=== PATIENT | female | born 1980 | race Caucasian/White ===

== ENCOUNTER → 2020-04-25 15:13 | Outpatient (CLI) | payer MEDICAID, SELFPAY ==
--- NOTE | 2020-04-25 15:20 | US_ITS ---
PROCEDURE: US TRANSVAGINAL CLINICAL INDICATION: US T/V- Pelvic Pain COMPARISON: No exams were available for comparison FINDINGS: The uterus measures 9 centimeters x 4.5 cm x 1.4 centimeters. 11 millimeter x 8 millimeter endometrial polyp is demonstrated. Endometrial thickness measures 14 millimeters. The left ovary measures 32 millimeters x 19 mm x 31 millimeters. The right ovary measures 24 millimeters x 13 millimeters X 33 millimeters.. There are no abnormal fluid collections. Normal bilateral ovarian Doppler signal is demonstrated IMPRESSION: Endometrial polyp Dictated by: Kenny Tang 04/25/2020 16:09 Electronically signed by Kenny Tang in [facility] 04/25/2020 16:09
== END ==
PROVIDERS: PCP Family Medicine; Visit Provider Obstetrics & Gynecology
DX: R10.2 Pelvic and perineal pain (principal)
CPT/HCPCS: 76830

== ENCOUNTER → 2020-05-04 14:46 | Outpatient (CLI) | payer MEDICAID, SELFPAY ==
[2020-05-04 16:25] LABS: HCG,Quantitative < 2 mIU/ml (0-5.42)
== END ==
PROVIDERS: Visit Provider Obstetrics & Gynecology
DX: Z32.00 Encounter for pregnancy test, result unknown (principal)
CPT/HCPCS: 36415; 84702

== ENCOUNTER → 2020-06-01 10:33 | Outpatient (CLI) | payer MEDICAID, SELFPAY ==
[2020-06-01 11:36] LABS: Basophils % 0.4 % (0.1-2.0); Eosinophils # 0.1 K/mm3 (0.0-0.4); Eosinophils % 1.8 % (0.1-12.0); Hematocrit 41.2 % (37.0-47.0); Lymphocytes # 3.9 K/mm3 (0.7-4.5); Lymphocytes % 56.2 % (10-50); Mean Corpuscular HGB Conc 33.9 g/dL (31.8-35.4); Mean Corpuscular Hemoglobin 31.7 pg (27.0-31.2); Mean Corpuscular Volume 93.6 fl (81-99); Mean Platelet Volume 7.3 fl (7.4-10.4); Monocytes # 0.4 K/mm3 (0.1-1.0); Monocytes % 5.3 % (1.7-9.3); Neutrophils # 2.5 K/mm3 (1.8-7.8); Neutrophils % 36.3 % (37.0-80.0); Platelet Count 250 K/mm3 (142-424); Red Cell Distribution Width 14.2 % (11.5-17.5); White Blood Count 6.9 K/mm3 (4.8-10.8)
[2020-06-01 11:56] LABS: MANUAL DIFFERENTIAL MANUAL DIFFERENTIAL (MANUAL DIFF)
[2020-06-01 12:14] LABS: Chloride 104 mmol/L (98-107); Sodium 137 mmol/L (136-145)
[2020-06-01 12:16] LABS: Blood Urea Nitrogen 5 mg/dl (7-17); Estimated Glomerular Filt Rate 92 ml/min (>60); GFR (African American) 111 ML/MIN (>60)
[2020-06-01 12:17] LABS: Alanine Aminotransferase 5 U/L (12-78); Albumin Level 3.5 g/dl (3.5-5.0); Albumin/Globulin Ratio 1.3 (1.1-1.8); Alkaline Phosphatase 51 U/L (38-126); Aspartate Amino Transferase 16 U/L (14-36); Bilirubin,Total 0.5 mg/dl (0.2-1.3); Calcium 8.5 mg/dl (8.4-10.2); Carbon Dioxide 28 mmol/L (22.0-30.0); Globulin 2.7 g/dL (1.3-3.2); Glucose 81 mg/dl (74-100); Total Protein,Serum 6.2 g/dl (6.3-8.2)
[2020-06-01 14:05] LABS: Eosinophils % 1 % (0-3); Lymphocytes % 67 % (10-50); Monocytes % 3 % (2-9); Neutrophils % 29 % (42-76); Platelet Estimate Normal; RBC Morphology Normal; Total Cells Counted 100
[2020-06-01 14:25] LABS: Coronavirus 19 IgG Antibody Negative (Negative); Coronavirus 19 IgM Antibody Negative (Negative)
[2020-06-01 14:27] LABS: HCG Qualitative, Serum Negative (Negative)
== END ==
PROVIDERS: PCP Family Medicine; Visit Provider Obstetrics & Gynecology
DX: Z01.818 Encounter for other preprocedural examination (principal); N92.0 Excessive and frequent menstruation with regular cycle
CPT/HCPCS: 36415; 80053; 84703; 85007; 85025; 86328

== ENCOUNTER → 2020-06-05 12:16 | Outpatient (CLI) | payer MEDICAID, SELFPAY ==
[2020-06-05 13:44] LABS: Coronavirus 19 IgG Antibody Negative (Negative)
[2020-06-05 13:45] LABS: Coronavirus 19 IgM Antibody Negative (Negative)
== END ==
PROVIDERS: Visit Provider Obstetrics & Gynecology
DX: Z01.818 Encounter for other preprocedural examination (principal); N92.0 Excessive and frequent menstruation with regular cycle
CPT/HCPCS: 36415; 86328

== ENCOUNTER 2020-06-06 07:01 | Day surgery (SDC) | payer MEDICAID, SELFPAY ==
[2020-06-02 14:17] VITALS: BMI 28.7
[2020-06-06] VITALS (14 sets, daily range): BP systolic 108–140; BP diastolic 64–90; PULSE 65–101; RESP 12–18; TEMP 36.3–43; O2SAT 95–99
--- NOTE | 2020-06-06 08:40 | P.PN_ITS ---
[facility] Anesthesia Checklist - Structural Data Admitted From: Home Planned Operative Procedure/s: d/c,hyst,novasure Consent for Planned Operative Procedure(s) Verified: Yes - Additional verifications Anesthesia Reactions: No Hx Blood Transfusions: No Blood Transfusion Reaction: No - Airway Assessment C-Spine Mobility Assessed: Yes TMJ Mobility Assessed: Yes Dentition: Edentulous - Neurological Assessment Level of Consciousness: Awake, Alert, Appropriate - Anesthesia Plan Anesthesia Risk discussed: Yes ASA Class: II Anesthesia Type: General [facility] History I have reviewed the patient's past medical history: Yes Medical History: Denies:: Cancer, Diabetes Mellitus Type 1, Diabetes Mellitus Type 2, Internal Pacemaker, MRSA, Seizures *Have you ever received a pneumonia vaccine?: No *Have you received a flu vaccine this season?: No Other Medical History: Denies: Blood Transfusion Reaction Anesthesia experience/problems:: none Other Surgeries: Yes: Appendectomy. No: Pacemaker Amputation: No Fractures: No - *Social History Last grade of school completed: GED Smoking Status: Current every day smoker Tobacco Type: cigarettes # Packs/Day (cigarettes): 2 Alcohol Intake: never Alcohol Intake Frequency:: holidays/special occasions only Substance Use Type: denies use *Occupational Status:: disabled Housing: house *Travel in the last 8 weeks: None Family Hx:: Cancer, Diabetes, Heart Attack, Hypertension, Hyperlipidemia, Asthma, Anemia, Stroke, Kidney Disease, Thyroid Disorder, Bleeding Disorder
--- NOTE | 2020-06-06 09:08 | HMH.ANESI ---
[facility] Anesthesia Record Part I Intake, IV Amount: 1,200 Estimated blood loss (mL): 10 Urine output (mL): 0 Blood Pressure: 116/74 SaO2: 96 Pulse Rate: 101 Respiratory Rate: 12 Temperature: 97.4 F Patient is:: Awake, Stable Stable to PACU at:: 09:05
--- NOTE | 2020-06-06 09:50 | P.OP_ITS ---
Date of procedure: 06/06/20 Pre-op Diagnosis:: Heavy menstrual bleeding, dysfunctional uterine bleeding, endometrial polyp, pelvic pain, previous tubal ligation Post-op Diagnosis:: same Procedure performed:: D&C Hysteroscopy, Myosure excision of endometrial polyp, Novasure endometrial ablation Surgeon:: Mari Russell MD Home Theater Installer(s):: none NOZZLE OPERATOR:: Gabe Sydni Anesthesia: GETA Estimated blood loss (mL): 10 Operative findings:: stenotic cervix endometrial polyp anterior uterine wall Operative note:: The patient was taken to the operating room and general anesthesia was administered. She was prepped/draped in lithotomy position. The anterior lip of the cervix was grasped with a single tooth tenaculum. The cervix was stenotic and initially unable to be dilated with the regular Saul dilators. Pediatric and flexible tip dilators were used to access the cervical os and the cervix was successfully dilated until able to accomodate the Myosure hysteroscope. The hysteroscope was advanced through the cervix and into the uterine cavity, which was distended with LR. Once the uterus was sufficiently distended, the cavity was evaluated and revealed some shaggy endometrium and a polyp on the anterior uterine wall. The Myosure was inserted into the hysteroscope and the polyp was excised successfully and without complication or significant fluid deficit. The remainder of the endometrium was sampled for tissue diagnosis. After the conclusion of this procedure, the Myosure and hys teroscope were removed from the uterus. The uterine cavity sounded to a length of 5cm. The Novasure was inserted through the cervix and expanded to fit the width of the uterus, with a width of 4.4cm. After a successful cavity assessment, the device was deployed and the endometrial ablation was completed in 108 seconds. Once the device had turned off, the Novasure was removed from the uterus and the hysteroscope was reinserted into the uterine cavity. The cavity appeared diffusely cauterized. The hysteroscope was removed from the uterus and all instruments removed from the vagina. The tenaculum site was hemostatic. All sponge/lap/needle/instrument counts correct x2. Total EBL: 10 cc. The patient was taken out of lithotomy position, extubated and taken to the PACU in stable condition. Condition: stable Disposition: PACU Specimens:: endometrial curettings Complications:: none
--- NOTE | 2020-06-06 10:47 | HMH.ANESII ---
[facility] Anesthesia Record Part II Discharge Time: 09:35 Destination: Surgical Day Care (OP Surgery) PACU nurse assessment reviewed?: Yes Patient Condition:: Fair Anesthesia Complications:: None Swallowing reflex intact?: Yes Cyanosis?: Yes Blood Pressure: 120/70 Pulse Rate: 73 Temperature: 97.5 F Mental Status: Alert & Oriented Pain level:: 8 Nausea and/or vomitting:: None Intake, IV Amount: 0 (NM)
--- NOTE | 2020-06-06 11:26 | PC.NURSE ---
Pt sleeping comfortably prior to IV being discontinued. Pt sister then helped her get dressed. She was alert and oriented and ambulated to wheelchair.
== END 2020-06-06 11:20 | disposition home or self-care (01) ==
LOC: OR 07:02
PROVIDERS: PCP Family Medicine; Visit Provider Obstetrics & Gynecology
PROC: 0U5B8ZZ Destruction of Endometrium, Via Natural or Artificial Opening Endoscopic (ICD-10-PCS; CPT 58563; principal; 2020-06-06 08:00)
DX: N88.2 Stricture and stenosis of cervix uteri (principal); N84.0 Polyp of corpus uteri; Z90.49 Acquired absence of other specified parts of digestive tract; Z72.0 Tobacco use; Z80.9 Family history of malignant neoplasm, unspecified; Z83.3 Family history of diabetes mellitus; Z82.3 Family history of stroke; Z82.49 Family history of ischemic heart disease and other diseases of the circulatory system; Z83.438 Family history of other disorder of lipoprotein metabolism and other lipidemia; Z82.5 Family history of asthma and other chronic lower respiratory diseases; Z84.1 Family history of disorders of kidney and ureter; Z79.51 Long term (current) use of inhaled steroids
CPT/HCPCS: 58563; 96374; J2405

== ENCOUNTER 2022-03-17 20:32 | Emergency (ER) | payer MEDICAID, SELFPAY ==
[2022-03-17 21:57] LABS: Microscopic, Urine URINE MICROSCOPIC (MICROSCOPIC)
[2022-03-17 21:59] VITALS: BMI 35.4
--- NOTE | 2022-03-17 22:01 | CT_ITS ---
PROCEDURE INFORMATION: Exam: CT Abdomen And Pelvis With Contrast Exam date and time: 03/17/2022 10:34 PM Age: 41 years old Clinical indication: Abdominal pain; Localized; Right lower quadrant (rlq); Patient HX: Rlq pain for 3 months worse tonight; Additional info: Abd pain TECHNIQUE: Imaging protocol: Computed tomography of the abdomen and pelvis with contrast. Radiation optimization: All CT scans at this facility use at least one of these dose optimization techniques: automated exposure control; mA and/or kV adjustment per patient size (includes targeted exams where dose is matched to clinical indication); or iterative reconstruction. Contrast material: ISOVUE; Contrast volume: 75 ml; Contrast route: IV; COMPARISON: CR XR PELVIS 1-2V 10/09/2019 10:08 PM FINDINGS: Lungs: Calcified granuloma in the right lower lobe. No consolidation of the lung bases. Liver: Unremarkable. No intrahepatic biliary dilation. Gallbladder and bile ducts: No gallbladder wall thickening. No radio-opaque stones. No common bile duct dilation. Pancreas: Unremarkable. No main pancreatic duct dilation. Spleen: Normal. No splenomegaly. Adrenal glands: Unremarkable. Kidneys and ureters: Symmetric, homogeneous enhancement of both kidneys. No hydronephrosis. Stomach and bowel: No obstruction. No abnormal bowel wall thickening. Appendix: No evidence of appendicitis. Intraperitoneal space: No pneumoperitoneum. No ascites. Vasculature: No abdominal aortic aneurysm. Lymph nodes: No enlarged lymph nodes. Urinary bladder: Bladder is partially fluid-filled, without evidence of wall thickening. Reproductive: There appears to be hyperenhancement of the endometrial lining within the uterine fundus, with possible loculation of endometrial fluid. There appear to be septations within the endometrial cavity, either synechiae or a congenital Mullerian segmentation anomaly. Bones/joints: No acute fracture. Soft tissues: Unremarkable. IMPRESSION: 1. Nonspecific perceived hyperenhancement of the endometrial lining, with possible loculated endometrial fluid. Considerations would include endometritis, hyperplasia, polyps, or neoplasm. Possible synechiae versus congenital segmentation anomaly. Consider pelvic ultrasound for further evaluation. 2. Otherwise unremarkable study.
[2022-03-17 22:03] LABS: Appearance,Urine CLEAR (Clear); Bilirubin,Urine Negative (Negative); Blood, Urine TRACE-I (Negative); Color,Urine YELLOW (Yellow); Glucose,Urine (UA) Negative (Negative); Ketones,Urine Negative (Negative); Leukocyte Esterase,Urine Negative (Negative); Nitrate,Urine Negative (Negative); Protein,Urine Negative (Negative); Specific Gravity, Urine 1.015 (1.005-1.030); Urobilinogen,Urine 0.2 EU/dl (0.2)
[2022-03-17 22:05] VITALS: BP 124/78; PULSE 70; RESP 18; TEMP 36.8; O2SAT 100; BMI 33.6
[2022-03-17 22:08] LABS: Urine Pregnancy, HCG Qual. Negative (Negative)
[2022-03-17 22:15] LABS: Basophils # 0.5 K/mm3 (0-0.2); Eosinophils # 0.2 K/mm3 (0.0-0.4); Eosinophils % 1.9 % (0.1-12.0); Hematocrit 47.4 % (37.0-47.0); Hemoglobin 15.8 g/dL (12.2-16.2); Lymphocytes # 4.7 K/mm3 (0.7-4.5); Lymphocytes % 44.3 % (10-50); Mean Corpuscular HGB Conc 33.3 g/dL (31.8-35.4); Mean Corpuscular Hemoglobin 31.9 pg (27.0-31.2); Mean Corpuscular Volume 95.8 fl (81-99); Mean Platelet Volume 7.9 fl (7.4-10.4); Monocytes # 0.5 K/mm3 (0.1-1.0); Monocytes % 4.5 % (1.7-9.3); Neutrophils # 5.2 K/mm3 (1.8-7.8); Neutrophils % 49.3 % (37.0-80.0); Platelet Count 341 K/mm3 (142-424); Red Blood Count 4.95 M/mm3 (4.20-5.40); Red Cell Distribution Width 13.8 % (11.5-17.5); White Blood Count 10.5 K/mm3 (4.8-10.8)
[2022-03-17 22:23] LABS: HCG Qualitative, Serum Negative (Negative)
[2022-03-17 22:24] LABS: Alanine Aminotransferase 15 U/L (12-78); Albumin Level 4.3 g/dl (3.5-5.0); Albumin/Globulin Ratio 1.4 (1.1-1.8); Alkaline Phosphatase 61 U/L (38-126); Amylase 72 U/L (30-110); Anion Gap 12.6 mEq/L (5-15); Aspartate Amino Transferase 22 U/L (14-36); Blood Urea Nitrogen 11 mg/dl (7-17); Carbon Dioxide 27 mmol/L (22.0-30.0); Chloride 105 mmol/L (98-107); Creatinine Clearance Estimated 110 mL/min (50-200); Estimated Glomerular Filt Rate 68 ml/min (>60); GFR (African American) 83 ML/MIN (>60); Globulin 3.1 g/dL (1.3-3.2); Glucose 93 mg/dl (74-100); Lipase 120 U/L (23-300); Potassium 3.6 mmoL/L (3.5-5.1); Sodium 141 mmol/L (136-145); Total Protein,Serum 7.4 g/dl (6.3-8.2)
[2022-03-17 22:29] LABS: Bilirubin,Total < 0.1 mg/dl (0.2-1.3)
[2022-03-17 22:30] LABS: C-Reactive Protein 4.9 mg/L (0-4)
[2022-03-17 22:30] LABS: Bacteria,Urine 1+ /lpf; RBC,Urine Occasional #/hpf (0-3)
[2022-03-17 22:41] LABS: Procalcitonin 0.046 ng/mL (0.0-2.0)
--- NOTE | 2022-03-17 22:42 | PC.NURSE ---
Pt gone to RAD
[2022-03-17 22:44] LABS: Erythrocyte Sedimentation Rate 18 mm/hr (0-20)
--- NOTE | 2022-03-17 22:51 | PC.WOUNDNOTE ---
Pt gone to RAD
--- NOTE | 2022-03-17 22:52 | PC.NURSE ---
Pt back from RAD
--- NOTE | 2022-03-18 00:41 | HMH.EDNVD ---
ED Disposition Clinical Impression: Abdominal pain Qualifiers: Abdominal location: right lower quadrant Qualified Code(s): R10.31 - Right lower quadrant pain Disposition: Home, Self-Care Condition on Discharge: Good Instructions: DI for Acute Abdominal Pain Additional Instructions: see pcp and bankruptcy paralegal for follow up Referrals: Tiffany Hoskins [Primary Care Provider] - Nabeel Monte MD [Staff Physician] - Mari Russell MD [Staff Physician] - Soraya Ornelas DO [Physician] - - Critical Care Critical Care Time: No Attestation: On 03/17/22, the high probability of a clinically significant, sudden or life threatening deterioration of the following system(s) required my full and direct attention, intervention and personal management. The time I documented below is in addition to time spent performing reported procedures but includes the following listed in this critical care notation. Medical Decision Making - Medical Records Medical records reviewed: Yes: I reviewed the patient's medical records. - Damon Inquiry Pt receiving controlled substance: No Vital Signs: 03/17/22 22:05 Temperature 98.2 F Temperature Source Oral Pulse Rate [Apical] 70 Respiratory Rate 18 Blood Pressure [Right Arm] 124/78 Blood Pressure Mean [Right Arm] 93 Blood Pressure Source [Right Arm] Automatic Cuff Blood Pressure Position [Right Arm] Sitting 02 Sat by Pulse Oximetry 100 Oxygen Delivery Method Room Air - Lab Data Lab results reviewed: Yes: I reviewed the patient's lab results. Lab Results 03/17/22 21:23: Urine HCG, Qual Negative 03/17/22 21:53: Urine Color Yellow, Urine Appearance Clear, Urine pH 5.0, Ur Specific [place] 1.015, Urine Protein Negative, Urine Glucose (UA) Negative, Urine Ketones Negative, Urine Blood Trace-i, Urine Nitrate Negative, Urine Bilirubin Negative, Urine Urobilinogen 0.2, Ur Leukocyte Esterase Negative, Urine RBC Occasional, Urine WBC 3-5, Ur Squamous Epith Cells 5-10, Urine Bacteria 1+ 03/17/22 21:55: WBC 10.5, RBC 4.95, Hgb 15.8, Hct 47.4 H, MCV 95.8, MCH 31.9 H, MCHC 33.3, RDW 13.8, Plt Count 341, MPV 7.9, Neut % (Auto) 49.3, Lymph % (Auto) 44.3, [place] % (Auto) 4.5, Eos % (Auto) 1.9, Baso % (Auto) 5.0 H, Neut # (Auto) 5.2, Lymph # (Auto) 4.7 H, [place] # (Auto) 0.5, Eos # (Auto) 0.2, Baso # (Auto) 0.5 H 03/17/22 21:55: Sodium 141, Potassium 3.6, Chloride 105, Carbon Dioxide 27, Anion Gap 12.6, BUN 11, Creatinine 0.90, Estimated Creat Clear 110, Estimated GFR 68, Est GFR ( Amer) 83, Glucose 93, Calcium 9.0, Total Bilirubin < 0.1 L, AST 22, ALT 15, Alkaline Phosphatase 61, C-Reactive Protein 4.9 H, Total Protein 7.4, Albumin 4.3, Globulin 3.1, Albumin/Globulin Ratio 1.4, Amylase 72, Lipase 120 03/17/22 21:55: ESR 18 03/17/22 21:55: Procalcitonin 0.046 03/17/22 21:55: Serum HCG, Qual Negative Result diagrams: 03/17/22 21:55 03/17/22 21:55 Orders (Tests/Meds): ED MEDICATIONS Generic Name Dose Route Start Last Admin Trade Name Freq PRN Reason Stop Dose Admin Sodium Chloride 1,000 mls @ 999 mls/hr 03/17/22 22:15 03/17/22 22:04 Sod Chlor 0.9% 1000ml Bag IV 03/17/22 23:15 999 mls/hr .Q1H1M JOHNSON Administration Discontinued Medications Generic Name Dose Route Start Last Admin Trade Name Freq PRN Reason Stop Dose Admin Iopamidol 75 ml 03/17/22 22:53 03/17/22 22:54 Iopamidol-370 (76%);100ml Bottle IV 03/17/22 22:54 75 ml ONCE ONE Administration Ketorolac Tromethamine 30 mg 03/17/22 22:01 03/17/22 22:09 Ketorolac 30mg/Ml Vial IV 03/17/22 22:02 30 mg ONCE ONE Administration Morphine Sulfate 4 mg 03/17/22 22:54 03/17/22 22:55 Morphine 4mg/Ml Syringe IV 03/17/22 22:55 4 mg ONCE ONE Administration Ondansetron HCl 4 mg 03/17/22 22:01 03/17/22 22:10 Ondansetron 4mg/2ml Vial IV 03/17/22 22:02 4 mg ONCE ONE Administration Sodium Chloride 10 ml 03/17/22 22:53 03/17/22 22:54 Sodium Chloride 0.9% 10ml Syr (Rad Only) IV 03/17/22 22:54 10
[2022-03-18 00:52] VITALS: BP 94/67; PULSE 71; RESP 18; TEMP 36.8; O2SAT 100
== END 2022-03-18 01:00 | disposition home or self-care (01) ==
PROVIDERS: Emergency Provider Emergency Medicine; PCP Family Medicine
DX: R10.31 Right lower quadrant pain (principal); M79.651 Pain in right thigh; Z79.1 Long term (current) use of non-steroidal anti-inflammatories (NSAID); Z79.899 Other long term (current) drug therapy; Z82.49 Family history of ischemic heart disease and other diseases of the circulatory system; Z80.9 Family history of malignant neoplasm, unspecified; Z83.3 Family history of diabetes mellitus; Z83.438 Family history of other disorder of lipoprotein metabolism and other lipidemia; Z83.49 Family history of other endocrine, nutritional and metabolic diseases; Z84.1 Family history of disorders of kidney and ureter; Z83.2 Family history of diseases of the blood and blood-forming organs and certain disorders involving the immune mechanism
CPT/HCPCS: 74177; 80053; 81001; 81025; 82150; 83690; 84145; 84703; 85025; 85651; 86140; 96361; 96372; 96374; 96375; 99285; J2405; Q9967

== ENCOUNTER → 2022-03-27 10:18 | Outpatient (CLI) | payer MEDICAID, SELFPAY ==
--- NOTE | 2022-03-27 10:18 | US_ITS ---
FINAL REPORT TECHNIQUE: Sonographic images of the pelvis were obtained transvaginally. CLINICAL HISTORY: abnormal CT; bilateral pelvic pain; history of ablasion COMPARISON: Prior ultrasound dated April 25, 2020 and prior abdomen and pelvis CT dated March 17, 2022. FINDINGS: The uterus is anteverted and anteflexed. It measures 9.1 x 4.9 x 5.7 cm. There is fluid within the endometrial cavity which may be partially loculated. The largest collection measures 2.2 x 1.5 cm. The myometrium is homogeneous. There are nabothian cysts within the cervix, it is otherwise unremarkable. The right ovary measures 2.7 x 2.6 x 2.4 cm. Follicles are seen as well as a 2.3 cm cyst which is likely functional. The left ovary measures 2.0 x 1.1 x 2.0 cm. It is normal in appearance. Color imaging to the ovaries is within normal limits. There is no free fluid. IMPRESSION: 1. Fluid, possibly loculated, distending the endometrial cavity. Etiology is unclear. Could be related to endometritis, cervical stenosis with obstruction is a possibility. It may be related to prior ablation. Recommend short-term follow-up. 2. A 2.3 cm right ovarian cyst which is likely functional and not uncommon in a patient of this age. Reviewed, Interpreted and Dictated by Kaya Song MD Transcribed by Crystal Barrett Authenticated by Kaya Song MD on 03/27/2022 04:03:39 PM [facility]
== END ==
PROVIDERS: PCP Family Medicine; Visit Provider Obstetrics & Gynecology
DX: R10.2 Pelvic and perineal pain (principal)
CPT/HCPCS: 76830

== ENCOUNTER → 2022-04-23 12:16 | Outpatient (CLI) | payer MEDICAID, SELFPAY ==
[2022-04-23 13:02] LABS: Basophils # 0.1 K/mm3 (0-0.2); Basophils % 0.8 % (0.1-2.0); Eosinophils # 0.1 K/mm3 (0.0-0.4); Eosinophils % 1.5 % (0.1-12.0); Hematocrit 48.2 % (37.0-47.0); Hemoglobin 16.3 g/dL (12.2-16.2); Lymphocytes # 2.3 K/mm3 (0.7-4.5); Lymphocytes % 28.2 % (10-50); Mean Corpuscular HGB Conc 33.7 g/dL (31.8-35.4); Mean Corpuscular Volume 94.9 fl (81-99); Mean Platelet Volume 7.9 fl (7.4-10.4); Monocytes # 0.5 K/mm3 (0.1-1.0); Monocytes % 5.8 % (1.7-9.3); Neutrophils # 5.1 K/mm3 (1.8-7.8); Neutrophils % 63.7 % (37.0-80.0); Platelet Count 285 K/mm3 (142-424); Red Blood Count 5.08 M/mm3 (4.20-5.40); Red Cell Distribution Width 13.7 % (11.5-17.5)
[2022-04-23 13:13] LABS: Barbiturates Screen,Urine Negative ng/ml (<200); Benzodiazepines Screen,Urine Negative ng/ml (<200)
[2022-04-23 13:14] LABS: Amphetamine/Metha Screen,Urine Negative ng/ml (<1000)
[2022-04-23 13:15] LABS: Cannabinoid Screen,Urine Negative ng/ml (<50); Cocaine Screen,Urine Negative ng/ml (<300)
[2022-04-23 13:16] LABS: Methadone Screen,Urine Negative ng/ml (<300); Opiate Screen,Urine Negative ng/ml (<300)
[2022-04-23 13:17] LABS: Phencyclidine Screen,Urine Negative ng/ml (<25)
[2022-04-23 13:29] LABS: Chloride 105 mmol/L (98-107); Sodium 139 mmol/L (136-145)
[2022-04-23 13:31] LABS: Alanine Aminotransferase 13 U/L (12-78); Aspartate Amino Transferase 21 U/L (14-36); Blood Urea Nitrogen 5 mg/dl (7-17); Estimated Glomerular Filt Rate 91 ml/min (>60); GFR (African American) 111 ML/MIN (>60)
[2022-04-23 13:32] LABS: Albumin Level 4.4 g/dl (3.5-5.0); Albumin/Globulin Ratio 1.6 (1.1-1.8); Alkaline Phosphatase 61 U/L (38-126); Bilirubin,Total 0.7 mg/dl (0.2-1.3); Calcium 9.5 mg/dl (8.4-10.2); Carbon Dioxide 26 mmol/L (22.0-30.0); Globulin 2.8 g/dL (1.3-3.2); Glucose 104 mg/dl (74-100); Total Protein,Serum 7.2 g/dl (6.3-8.2)
[2022-04-23 13:51] LABS: HCG,Quantitative < 2 mIU/ml (0-5.42)
== END ==
PROVIDERS: PCP Family Medicine; Visit Provider Obstetrics & Gynecology
DX: Z01.818 Encounter for other preprocedural examination (principal); Z20.822 Contact with and (suspected) exposure to COVID-19; R10.2 Pelvic and perineal pain; N85.9 Noninflammatory disorder of uterus, unspecified; N88.2 Stricture and stenosis of cervix uteri
CPT/HCPCS: 36415; 80053; 80305; 84702; 85025; C9803; U0003; U0005

== ENCOUNTER 2022-04-25 06:01 | Day surgery (SDC) | payer MEDICAID, SELFPAY ==
[2022-04-24 12:49] VITALS: BMI 34.5
[2022-04-25] VITALS (14 sets, daily range): BP systolic 103–115; BP diastolic 54–85; PULSE 63–81; RESP 13–22; TEMP 36.1–36.7; O2SAT 96–100
--- NOTE | 2022-04-25 07:39 | P.PN_ITS ---
[facility] Anesthesia Checklist - Patient Identification Patient Identification: Arm Band, Verbal (Name & ) - Structural Data Admitted From: Long-term Nursing Facility Planned Operative Procedure/s: Hysteroscopy D&C Consent for Planned Operative Procedure(s) Verified: Yes Verified Documents: Surgical Consent - NPO Status Verified Time NPO: 00:00 - Additional verifications Anesthesia Reactions: No Hx Blood Transfusions: No Blood Transfusion Reaction: No - Airway Assessment C-Spine Mobility Assessed: Yes TMJ Mobility Assessed: Yes Dentition: Edentulous - Neurological Assessment Level of Consciousness: Awake, Alert, Appropriate - Anesthesia Plan Anesthesia Risk discussed: Yes ASA Class: II Anesthesia Type: General [facility] History I have reviewed the patient's past medical history: Yes Medical History: Denies:: Cancer, Diabetes Mellitus Type 1, Diabetes Mellitus Type 2, Internal Pacemaker, MRSA, Seizures *Have you ever received a pneumonia vaccine?: No *Have you received a flu vaccine this season?: No Other Medical History: Denies: Blood Transfusion Reaction Anesthesia experience/problems:: none Other Surgeries: Yes: Appendectomy. No: Pacemaker Amputation: No Fractures: No - *Social History Last grade of school completed: GED Smoking Status: Current every day smoker Tobacco Type: cigarettes # Packs/Day (cigarettes): 1 Alcohol Intake: current Alcohol Intake Frequency:: holidays/special occasions only Substance Use Type: denies use *Occupational Status:: disabled Housing: house Household Members: children *Travel in the last 8 weeks: None Family Hx:: Cancer, Heart Attack, Hypertension, Stroke
--- NOTE | 2022-04-25 08:13 | HMH.ANESI ---
[facility] Anesthesia Record Part I Intake, IV Amount: 500 Estimated blood loss (mL): 10 Urine output (mL): 0 Blood Pressure: 115/73 SaO2: 96 Pulse Rate: 74 Respiratory Rate: 14 Temperature: 98.0 F Patient is:: Drowsy Stable to PACU at:: 08:11
--- NOTE | 2022-04-25 09:19 | SUR.PHASEI ---
0909 called and provided detailed report to Paul Rneee RN [id number] transported to post op via stretcher. vital signs stable. pt states she is having 7/10 pain. see eMAR for meds administered. pt is resting comfortably when not being bothered. pt stated she was not able to move legs. pt was able to move from side to side and raise knee up from stretcher. pt then stated that legs felt heavy. pt left in stable condition with Paul Renee RN at bedside.
--- NOTE | 2022-04-25 09:24 | P.OP_ITS ---
Date of procedure: 04/25/22 Pre-op Diagnosis:: Pelvic pain Endometrial fluid Cervical stenosis Post-op Diagnosis:: same Procedure performed:: D&C Hysteroscopy Surgeon:: Mari Russell MD FULFILLMENT ASSOCIATE:: Other Anesthesia: GETA Estimated blood loss (mL): 5 Operative findings:: Cervical stenosis Operative note:: The patient was taken to the OR and general anesthesia administered without difficulty. She was prepped/draped in lithotomy position. The cervix was stenotic and standard dilators would not pass through cervix. Pediatric dilators were opened and the cervix was progressively dilated. Subsequent hysteroscopic evaluation performed. No fluid collection was visualized within the endometrial cavity, as reported on pelvic ultrasound. No polyps or submucosal fibroids were found in the endometrial cavity. Sharp curettage was performed and the specimen sent for pathology. Once this was completed, all instruments were removed from her uterus and vagina. She was taken out of lithotomy position, awakened from anesthesia and taken to the PACU in stable condition. All sponge, needle & instrument counts correct. EBL 5cc. Condition: stable Disposition: PACU Specimens:: Endometrial curettings Complications:: none
--- NOTE | 2022-04-25 10:29 | SUR.PHASEII ---
Pt complained of itching- no rash or redness noted. Pt stated she has had Dilaudid and does fine. Applied cold damp towel to back and washcloths to chest and face. Pt stated that relieved the itching. Gave her ordered Percocet 5/325mg and Ibuprofen 600mg for pain 7-06/12. Pt tolerated pain medication well. Stated was ready to get dressed and leave
--- NOTE | 2022-04-26 08:24 | HMH.ANESII ---
[facility] Anesthesia Record Part II Discharge Time: 09:11 Destination: Surgical Day Care (OP Surgery) PACU nurse assessment reviewed?: Yes Patient Condition:: Good Anesthesia Complications:: None Swallowing reflex intact?: Yes Cyanosis?: No Blood Pressure: 108/82 Pulse Rate: 70 Temperature: 97.4 F Mental Status: Alert & Oriented Pain level:: 7 Nausea and/or vomitting:: None Intake, IV Amount: 0
[2022-04-26 08:25] VITALS: BP 108/82; PULSE 70; TEMP 36.3
== END 2022-04-25 10:10 | disposition home or self-care (01) ==
LOC: OR 06:03
PROVIDERS: PCP Family Medicine; Visit Provider Obstetrics & Gynecology
PROC: 0UDB8ZZ Extraction of Endometrium, Via Natural or Artificial Opening Endoscopic (ICD-10-PCS; CPT 58558; principal; 2022-04-25 07:30)
DX: N88.2 Stricture and stenosis of cervix uteri (principal); R10.2 Pelvic and perineal pain
CPT/HCPCS: 58558; 96374; J2405

== ENCOUNTER 2022-05-08 13:41 | Emergency (ER) | payer MEDICAID, SELFPAY ==
--- NOTE | 2022-05-08 14:21 | PC.NURSE ---
checked on pt at this time in the lobby, updated pt we will get her assigned to an ER room as soon as one is available. Pt verbalized understanding of no beds available in ER At this time. Offered pt warm blanket or cool, wet rag. Pt given cool rag. Pt sitting in wheelchair at this time, has some one with her in the lobby. Will continue to monitor.
[2022-05-08 15:18] VITALS: BP 159/101; PULSE 64; RESP 18; TEMP 36.8; O2SAT 99; BMI 35.0
[2022-05-08 15:31] VITALS: BP 159/93; PULSE 68; O2SAT 99
--- NOTE | 2022-05-08 15:55 | HMH.EDGENADL ---
ED Disposition Clinical Impression: Fluid in endometrial cavity, Pelvic pain Disposition: Home, Self-Care Condition on Discharge: Good Additional Instructions: [place] as needed for pain See Dr. Russell tomorrow for scheduled colposcopy. Discussed your current pain and ultrasound findings with her so that she may review and provide further care. Additional instructions for CONTROLLED SUBSTANCES: You have been prescribed a medication that is a controlled substance. Controlled substances include pain medications known as opiates and sedative nerve medications known as benzodiazepines. Tramadol, fioricet, and gabapentin are also controlled substances. Some common opiates include: Codeine (such as Tylenol #3) Hydrocodone (Vicodin, Lortab, Lorcet, [place]) Oxycodone (Percocet, Percodan, Oxycodone, Oxy IR) Some common benzodiazepines include: Diazepam (Valium) Lorazepam (Ativan) Alprazolam (Xanax) Clonazepam (Klonopin) Oxazepam (Serax) All of these controlled substances are highly addictive and frequently abused. Misuse can and frequently does lead to addiction as well as overdose and . Medication should be stored in a locked cabinet or other secure storage unit. Do not store the medication in a motor vehicle. Short term supplies, 3 days or less, are prescribed because of the highly addictive nature of the medication. Any of the controlled substance medication NOT taken should be disposed of properly and NOT SAVED. The recommended method of disposing of unused medications is: Place the medicines in a sealable plastic bag. If the medicine is a solid, crush it or add water to dissolve it. Add something undesirable (cat litter, coffee grounds, etc.) Dispose of sealed bag in household trash Do not flush or pour unused medicines down a sink or drain. Controlled substances should not be shared, given away or sold. Because of the addictive nature and frequent abuse, these medications are sometimes stolen. These medications should be kept in a safe place where they cannot be stolen. Do not keep them in your car or purse. Lost or stolen prescriptions for controlled substances WILL NOT BE REFILLED in this emergency department, regardless of whether a police report was filed. Prescriptions: Hydrocod/Acet 5/325 mg [[place] 5/325mg tablet] 1 tab PO Q6HP PRN #10 tab PRN Reason: Pain Transmission Status: [id number] Referrals: Tiffany Hoskins [Primary Care Provider] - - Critical Care Critical Care Time: No Attestation: On 05/08/22, the high probability of a clinically significant, sudden or life threatening deterioration of the following system(s) required my full and direct attention, intervention and personal management. The time I documented below is in addition to time spent performing reported procedures but includes the following listed in this critical care notation. Medical Decision Making - Medical Records Medical records reviewed: Yes: I reviewed the patient's medical records. MR Comment: Operative report from hysteroscopy 04/25/2022 reviewed. The patient had cervical stenosis, but the endometrial cavity was able to be entered with the hysteroscope after dilatation of the cervix. No fluid or other abnormalities found. Reviewed ultrasound of pelvis result 03/27/2022 which had shown fluid in the endometrial cavity, not found at hysteroscopy. - Damon Inquiry Pt receiving controlled substance: Yes Damon was queried for this patient: Yes Risks and benefits of using a controlled substance: were discussed with pt by me Vital Signs: 05/08/22 15:18 05/08/22 15:31 05/08/22 16:20 Temperature 98.2 F Temperature Source Oral Pulse Rate 68 62 Pulse Rate [Left Radial] 64 Respiratory Rate 18 Blood Pressure 159/93 H 122/85 Blood Pressure [Right Arm] 159/101 H Blood Pressure Mean 123 99 Blood Pressure Mean [Right Arm] 120 02 Sat by Pulse Oximetry 99 99 100 Oxygen Deliv
--- NOTE | 2022-05-08 16:05 | PC.NURSE ---
rounded on pt at this time. pt requesting pain medication, will notify JACQUELINE HATFIELD. Pt laying in bed, visitor at BS. Will continue to monitor
--- NOTE | 2022-05-08 16:10 | US_ITS ---
PROCEDURE INFORMATION: Exam: US Pelvis, Transvaginal Exam date and time: 05/08/2022 4:18 PM Age: 42 years old Clinical indication: Pelvic pain TECHNIQUE: Imaging protocol: Real-time transvaginal pelvic ultrasound with image documentation. Transvaginal imaging was used for better evaluation of the endometrium, adnexa, and/or cervix. COMPARISON: US TRANSVAGINAL 03/27/2022 10:35 AM FINDINGS: Uterus: Anteverted uterus. Endometrium remains distended with both fluid as well as the 2.6 cm area of complex fluid, hematoma, or less likely mass. No color flow is documented within this. This may be trapped secretions in setting of cervical stenosis. Endometrium 2 cm in thickness. Uterus measures 8.4 x 4.9 x 5.4 cm. Cervix: Nabothian cysts. Right ovary/adnexa: Right ovary measures 3.2 x 1.5 x 1.4 cm. Left ovary/adnexa: Left ovary measures 3.1 x 1.6 by 1.8 cm. Intraperitoneal space: No free fluid. IMPRESSION: Endometrial canal remains distended with both fluid as well as a 2.6 cm area of complex fluid, hematoma, or less likely mass. No color flow is documented within this. This may be trapped secretions in setting of cervical stenosis.
--- NOTE | 2022-05-08 16:11 | PC.NURSE ---
JACQUELINE HATFIELD speaking with Dr. Ornelas regarding pt at this time
[2022-05-08 16:14] LABS: Basophils % 0.4 % (0.1-2.0); Eosinophils # 0.2 K/mm3 (0.0-0.4); Eosinophils % 1.6 % (0.1-12.0); Hematocrit 45.2 % (37.0-47.0); Hemoglobin 15.6 g/dL (12.2-16.2); Lymphocytes # 2.1 K/mm3 (0.7-4.5); Lymphocytes % 20.8 % (10-50); Mean Corpuscular HGB Conc 34.5 g/dL (31.8-35.4); Mean Corpuscular Hemoglobin 31.1 pg (27.0-31.2); Mean Corpuscular Volume 90.1 fl (81-99); Mean Platelet Volume 6.9 fl (7.4-10.4); Monocytes # 0.5 K/mm3 (0.1-1.0); Monocytes % 4.7 % (1.7-9.3); Neutrophils # 7.4 K/mm3 (1.8-7.8); Neutrophils % 72.5 % (37.0-80.0); Platelet Count 301 K/mm3 (142-424); Red Blood Count 5.02 M/mm3 (4.20-5.40); White Blood Count 10.3 K/mm3 (4.8-10.8)
[2022-05-08 16:19] LABS: Anion Gap 8.2 mEq/L (5-15); Blood Urea Nitrogen 7 mg/dl (7-17); Calcium 8.8 mg/dl (8.4-10.2); Carbon Dioxide 28 mmol/L (22.0-30.0); Chloride 107 mmol/L (98-107); Creatinine Clearance Estimated 145 mL/min (50-200); Estimated Glomerular Filt Rate 91 ml/min (>60); GFR (African American) 110 ML/MIN (>60); Glucose 99 mg/dl (74-100); Potassium 4.2 mmoL/L (3.5-5.1); Sodium 139 mmol/L (136-145)
[2022-05-08 16:20] VITALS: BP 122/85; PULSE 62; O2SAT 100
--- NOTE | 2022-05-08 16:25 | PC.NURSE ---
pt to ultrasound
--- NOTE | 2022-05-08 16:58 | PC.NURSE ---
pt return from ultrasound, rad staff giving ER MD verbal report at this time
--- NOTE | 2022-05-08 17:23 | PC.NURSE ---
Dr. Leon speaking with Dr. Ornelas at this time
[2022-05-08 18:05] VITALS: BP 133/74; PULSE 64; RESP 18; TEMP 36.8; O2SAT 100
== END 2022-05-08 18:07 | disposition home or self-care (01) ==
PROVIDERS: Emergency Provider Emergency Medicine; PCP Family Medicine
DX: R10.2 Pelvic and perineal pain (principal)
CPT/HCPCS: 76830; 80048; 85025; 96374; 96375; 99284; J2405

== ENCOUNTER → 2022-06-15 11:37 | Outpatient (CLI) | payer MEDICAID, SELFPAY | PROVIDERS: PCP Family Medicine; Visit Provider Obstetrics & Gynecology | DX: Z34.90 Encounter for supervision of normal pregnancy, unspecified, unspecified trimester (principal) | CPT/HCPCS: C9803; U0003; U0005 ==

== ENCOUNTER 2022-06-18 11:12 | Inpatient (IN) | payer MEDICAID, SELFPAY ==
[2022-06-14 11:21] VITALS: BMI 35.0
[2022-06-18] VITALS (24 sets, daily range): BP systolic 107–161; BP diastolic 65–92; PULSE 68–89; RESP 12–22; TEMP 36.2–43; O2SAT 94–99
[2022-06-18 06:27] LABS: Urine Pregnancy, HCG Qual. Negative (Negative)
[2022-06-18 06:37] LABS: Amphetamine/Metha Screen,Urine Negative ng/ml (<1000)
[2022-06-18 06:38] LABS: Barbiturates Screen,Urine Negative ng/ml (<200)
[2022-06-18 06:39] LABS: Benzodiazepines Screen,Urine Negative ng/ml (<200); Cannabinoid Screen,Urine Negative ng/ml (<50)
[2022-06-18 06:40] LABS: Cocaine Screen,Urine Negative ng/ml (<300)
[2022-06-18 06:41] LABS: Methadone Screen,Urine Negative ng/ml (<300); Opiate Screen,Urine Negative ng/ml (<300)
[2022-06-18 06:42] LABS: Phencyclidine Screen,Urine Negative ng/ml (<25)
[2022-06-18 06:43] LABS: Coronavirus 19, PCR Not Detected (NotDetected); Influenza A, PCR Not Detected (NotDetected); Influenza B, PCR Not Detected (NotDetected)
[2022-06-18 06:47] LABS: Basophils # 0.2 K/mm3 (0-0.2); Basophils % 1.4 % (0.1-2.0); Eosinophils # 0.2 K/mm3 (0.0-0.4); Eosinophils % 1.9 % (0.1-12.0); Hematocrit 49.9 % (37.0-47.0); Hemoglobin 15.8 g/dL (12.2-16.2); Lymphocytes # 3.2 K/mm3 (0.7-4.5); Lymphocytes % 25.1 % (10-50); Mean Corpuscular HGB Conc 31.7 g/dL (31.8-35.4); Mean Corpuscular Hemoglobin 30.6 pg (27.0-31.2); Mean Corpuscular Volume 96.6 fl (81-99); Monocytes # 0.6 K/mm3 (0.1-1.0); Monocytes % 4.4 % (1.7-9.3); Neutrophils # 8.5 K/mm3 (1.8-7.8); Neutrophils % 67.2 % (37.0-80.0); Platelet Count 316 K/mm3 (142-424); Red Blood Count 5.17 M/mm3 (4.20-5.40); Red Cell Distribution Width 13.7 % (11.5-17.5); White Blood Count 12.6 K/mm3 (4.8-10.8)
[2022-06-18 06:58] LABS: Chloride 108 mmol/L (98-107); Sodium 139 mmol/L (136-145)
[2022-06-18 07:01] LABS: Alanine Aminotransferase 13 U/L (12-78); Albumin Level 4.4 g/dl (3.5-5.0); Albumin/Globulin Ratio 1.6 (1.1-1.8); Alkaline Phosphatase 59 U/L (38-126); Aspartate Amino Transferase 23 U/L (14-36); Bilirubin,Total 0.4 mg/dl (0.2-1.3); Blood Urea Nitrogen 10 mg/dl (7-17); Calcium 9.5 mg/dl (8.4-10.2); Carbon Dioxide 23 mmol/L (22.0-30.0); Creatinine Clearance Estimated 170 mL/min (50-200); Estimated Glomerular Filt Rate 109 ml/min (>60); GFR (African American) 131 ML/MIN (>60); Globulin 2.8 g/dL (1.3-3.2); Glucose 106 mg/dl (74-100); Total Protein,Serum 7.2 g/dl (6.3-8.2)
--- NOTE | 2022-06-18 07:14 | HMH.HP ---
*Admission Date: 06/18/22 *Chief complaint: Pelvic pain *History of present illness: 42 yo female scheduled for hysterectomy for management of pelvic pain Previous hysterectomy for management of HMB Since time of ablation she is having ongoing pelvic pain Ultrasound for evaluation of pelvic pain showed persistent fluid collection in uterine cavity Hysterocopic evaluation was unsuccessful due to cervical stenosis [facility] History I have reviewed the patient's past medical history: Yes Medical History: Denies:: Cancer, Diabetes Mellitus Type 1, Diabetes Mellitus Type 2, Internal Pacemaker, MRSA, Seizures *Have you ever received a pneumonia vaccine?: No *Have you received a flu vaccine this season?: No Other Medical History: Denies: Blood Transfusion Reaction Anesthesia experience/problems:: none Other Surgeries: Yes: Appendectomy. No: Pacemaker Amputation: No Fractures: No - *Social History Last grade of school completed: GED Smoking Status: Current every day smoker Tobacco Type: cigarettes # Packs/Day (cigarettes): 2 Alcohol Intake: never Alcohol Intake Frequency:: holidays/special occasions only Substance Use Type: denies use *Occupational Status:: unemployed, disabled Housing: house Household Members: children *Travel in the last 8 weeks: None Family Hx:: Cancer, Heart Attack, Hypertension, Stroke Review of Systems - Review of Systems Review of systems:: pertinent systems reviewed and negative unless documented below - *Genitourinary Reports pelvic pain - *Musculoskeletal Reports back pain Meds Home Medications Medication Instructions Recorded Confirmed Type gabapentin 100 mg capsule 100 mg PO QID cap 03/22/22 06/14/22 History hydroxyzine HCl 25 mg tablet 25 mg PO TID tab 04/23/22 06/14/22 History ondansetron 8 mg disintegrating 8 mg PO DAILYP PRN tab 04/23/22 06/18/22 History tablet Albuterol Sulfate [Proventil-HFA 2 puffs IH Q6HP PRN 04/24/22 06/18/22 History 90mcg/puff Inh] Dicyclomine HCl [Bentyl 10mg 10 mg PO QID 06/18/22 06/18/22 History capsule] Allergies Allergy/AdvReac Type Severity Reaction Status Date / Time No Known Allergies Allergy Verified 06/13/22 09:34 Exam Vital signs and Labs for Last 24 Hours: Temp Pulse Resp BP Pulse Ox 97.5 F L 86 18 120/75 97 06/18/22 12:00 06/18/22 12:00 06/18/22 12:00 06/18/22 12:00 06/18/22 12:00 Laboratory Results - last 24 hr 06/18/22 06:15: Urine HCG, Qual Negative 06/18/22 06:15: Urine Opiates Screen Negative, Urine Methadone Screen Negative, Ur Barbituates Screen Negative, Ur Phencyclidine Scrn Negative, Ur Amphetamines Screen Negative, U Benzodiazepines Scrn Negative, Urine Cocaine Screen Negative, U Marijuana (THC) Screen Negative 06/18/22 06:30: WBC 12.6 H, RBC 5.17, Hgb 15.8, Hct 49.9 H, MCV 96.6, MCH 30.6, MCHC 31.7 L, RDW 13.7, Plt Count 316, MPV 8.0, Neut % (Auto) 67.2, Lymph % (Auto) 25.1, [place] % (Auto) 4.4, Eos % (Auto) 1.9, Baso % (Auto) 1.4, Neut # (Auto) 8.5 H, Lymph # (Auto) 3.2, [place] # (Auto) 0.6, Eos # (Auto) 0.2, Baso # (Auto) 0.2 06/18/22 06:30: Sodium 139, Potassium 4.0, Chloride 108 H, Carbon Dioxide 23, Anion Gap 12.0, BUN 10, Creatinine 0.60, Estimated Creat Clear 170, Estimated GFR 109, Est GFR ( Amer) 131, Glucose 106 H, Calcium 9.5, Total Bilirubin 0.4, AST 23, ALT 13, Alkaline Phosphatase 59, Total Protein 7.2, Albumin 4.4, Globulin 2.8, Albumin/Globulin Ratio 1.6 06/18/22 06:38: SARS-CoV-2 (PCR) Not detected, Influenza A Untype (PCR) Not detected, Influenza Type B (PCR) Not detected 06/18/22 09:00: Urine Color Yellow, Urine Appearance Clear, Urine pH 6.0, Ur Specific [place] >= 1.030, Urine Protein Trace, Urine Glucose (UA) Negative, Urine Ketones Negative, Urine Blood 1+, Urine Nitrate Negative, Urine Bilirubin Negative, Urine Urobilinogen 0.2, Ur Leukocyte Esterase Negative I & O for Last 24 hours: Intake & Output 06/16/22 06/17/22 06/18/22 06/19/22 11:59 11:59 11:59 11:59 I
--- NOTE | 2022-06-18 08:12 | HMH.ANESCL ---
[facility] Anesthesia Checklist - Structural Data Admitted From: Home Planned Operative Procedure/s: [facility] Consent for Planned Operative Procedure(s) Verified: Yes - Additional verifications Anesthesia Reactions: No Hx Blood Transfusions: No Blood Transfusion Reaction: No - Airway Assessment C-Spine Mobility Assessed: Yes TMJ Mobility Assessed: Yes Dentition: Edentulous - Neurological Assessment Level of Consciousness: Awake, Alert, Appropriate - Anesthesia Plan Anesthesia Risk discussed: Yes Anesthesia Plan: Verified ASA Class: II Anesthesia Type: General w/block - Preoperative Comments Pre-Operative Comments: tap block per Dr Russell [facility] History I have reviewed the patient's past medical history: Yes Medical History: Denies:: Cancer, Diabetes Mellitus Type 1, Diabetes Mellitus Type 2, Internal Pacemaker, MRSA, Seizures *Have you ever received a pneumonia vaccine?: No *Have you received a flu vaccine this season?: No Other Medical History: Denies: Blood Transfusion Reaction Anesthesia experience/problems:: none Other Surgeries: Yes: Appendectomy. No: Pacemaker Amputation: No Fractures: No - *Social History Last grade of school completed: GED Smoking Status: Current every day smoker Tobacco Type: cigarettes # Packs/Day (cigarettes): 2 Alcohol Intake: never Alcohol Intake Frequency:: holidays/special occasions only Substance Use Type: denies use *Occupational Status:: unemployed, disabled Housing: house Household Members: children *Travel in the last 8 weeks: None Family Hx:: Cancer, Heart Attack, Hypertension, Stroke
--- NOTE | 2022-06-18 09:57 | SUR.OPER ---
[id number]-Dr. Russell contacted pt's fiance/person to notify at this time and updated that surgery was completed.
--- NOTE | 2022-06-18 10:14 | P.PN_ITS ---
[facility] Anesthesia Record Part I Intake, IV Amount: 2,500 Estimated blood loss (mL): 100 Urine output (mL): 200 Blood Pressure: 148/90 SaO2: 96 Pulse Rate: 78 Respiratory Rate: 12 Temperature: 97.9 F Patient is:: Awake, Stable Stable to PACU at:: 10:10
--- NOTE | 2022-06-18 10:23 | HMH.OPNOTE ---
Date of procedure: 06/18/22 Pre-op Diagnosis:: 1. Pelvic pain 2. Endometrial fluid collection 3. 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 She was prepped and draped in the supine position. A Pfannenstiel skin incision was made approximately 2 cm above the pubic symphysis with a scalpel and carried down to the underlying layer of fascia. The fascia was incised in the midline and extended laterally sharply. The rectus muscles were sharply dissected off the fascia and in the midline. The peritoneum was entered sharply, with good visualization of the underlying structures. The peritoneal incision was extended bluntly. A survey of the patient's pelvis and abdomen revealed the findings noted above. At this time, the patient was placed in Trendelenburg and a [place] retractor was placed in the abdomen; the bowel was packed with moist laparotomy sponges. A double tooth tenaculum was placed on the uterine fundus and the uterus was elevated out of the pelvis. No fibroids or other visible uterine lesions were noted. The round ligaments were identified and transected and suture-ligated. The anterior lip of the broad ligament was dissected medially on both sides and the bladder flap was created digitally. The posterior leaf of the broad ligament was dissected until the ureters were able to be identified on either side and noted to be free of the forthcoming adnexal pedicles. The left ovary was densely adhesed to the posterior uterus. Attempted dissection of the ovary off the uterus caused bleeding from the ovary necessitating removal of the left ovary. The Infundibulopelvic ligaments were doubly clamped transected and suture ligated on either side--lateral to the left ovary and medial to the right ovary. Excellent hemostasis was noted. The uterine arteries were skeletonized on either side, and were clamped, transected and suture ligated with excellent hemostasis. The bladder flap was further bluntly dissected off the lower uterine segment with excellent hemostasis and without injury to the bladder. The cardinal and uterosacral ligaments were clamped transected and suture ligated on both sides until the vaginal mucosa was entered. The vaginal incision was extended circumferentially with ravi scissors; the uterus and cervix were removed abdominally and sent for pathology. The vaginal cuff angles were closed 0 Vicryl [id number] sutures and were transfixed to the ipsilateral cardinal and uterosacral ligaments. The remainder of the vaginal cuff was closed with 0 Vicryl interrupted sutures. The pelvis was copiously irrigated with a solution of sterile water. The cuff was hemostatic. All pedicles were reexamined and remained hemostatic. All instruments were removed from the patient's abdomen. The peritoneum was closed with 2-0 Vicryl in a running fashion. The fascia was closed with #1 Vicryl in a running fashion. The skin was closed with 2-0 stratafix in a subcuticular fashion. The patient tolerated the procedure well; sponge/lap/needle and instrument counts were correct ?2. She was taken to the recovery room awake in stable condition. Estimated blood loss: 100 cc. Condition: stable Disposition: PACU Specimens:: Uterus, cervix, left fallopian tube and left ovary Complications:: none
--- NOTE | 2022-06-18 11:18 | SUR.PHASEI ---
1105 pt appears to be resting comfortably and sleeping. vital signs are stable. pt will complain of pain upon arousal and when asked. rates pain currently at 8. pain medications have been administered. see MAR for details. offered assistance in change positions to relieve pain; pt refused. called and gave detailed report to HERMAN Rudd RN. 1110 transported via bed. vital signs stable. pt appears comfortable during transport. left in stable condition with HERMAN Rudd RN at bedside.
--- NOTE | 2022-06-18 13:40 | P.CONPHA_ITS ---
[facility] Pharmacy VTE Monitoring - Patient Demographics Admission date: 06/18/22 Report Date: 06/18/22 Time: 13:40 Allergies/Adverse Reactions: Patient Allergies No Known Allergies Allergy (Verified 06/13/22 09:34) Height: 1.6 m Weight: 89.811 kg - VTE Risk Labs: VTE Related Lab Results Hgb 15.8 g/dL (12.2-16.2) 06/18/22 06:30 Hct 49.9 % (37.0-47.0) H 06/18/22 06:30 Plt Count 316 K/mm3 (142-424) 06/18/22 06:30 BUN 10 mg/dl (7-17) 06/18/22 06:30 Creatinine 0.60 mg/dl (0.52-1.04) 06/18/22 06:30 Estimated Creat Clear 170 mL/min (50-200) 06/18/22 06:30 VTE Score: 2 VTE Risk Level: Very Low Risk - Prophylaxis VTE Prophylaxis Ordered?: Yes Types of VTE Prophylaxis: IPCS Thigh High Location of Applied Device: Bilateral Lower Extremeties
--- NOTE | 2022-06-18 13:40 | HMH.PHAINT ---
MEDICATION RECONCILIATION COMPLETED ON PATIENT USING EXTERNAL FILL HISTORY FROM PHARMACY. -SIMONA OLIVARES, NICOLED
[2022-06-18 15:07] LABS: Microscopic,Cath URINE MICROSCOPIC (MICROSCOPIC)
[2022-06-18 15:40] LABS: Appearance,Urine/Cath CLEAR (Clear); Bilirubin,Cath Negative (Negative); Blood, Urine/Cath 1+ (Negative); Color,Urine/Cath YELLOW (Yellow); Glucose,Urine/Cath (UA) Negative (Negative); Ketones,Urine/Cath Negative (Negative); Leukocyte Esterase,Cath Negative (Negative); Nitrate,Cath Negative (Negative); Protein,Urine/Cath TRACE (Negative); Specific Gravity, Urine/Cath >= 1.030 (1.005-1.030); Urobilinogen,Cath 0.2 EU/dl (0.2)
[2022-06-18 17:28] LABS: Bacteria,Urine/Cath TRACE /lpf; WBC,Urine/Cath Occasional #/hpf (0-3)
--- NOTE | 2022-06-18 17:52 | PC.NURSE ---
1630 RN reassessment completed at this time. Pt has received PRN dilaudid 1 mg x2 this shift with adequate pain relief per pain reassessment. Pt reports pain at a tolerable level of 5 at time of reassessment, requested that F/C be removed so she can ambulate. IPCS worn by patient initially but refused at this time, reports my legs are restless. She remains A&O X4 and is appropriate with staff. Abd soft and mildly tender with BS active in all quads. Pt reports passing flatus, no BM since surgery. She is tolerating a regular diet well with no nausea or vomiting. Lung sounds CTA with scattered wheezes heard throughout. Pt reports no SOA or difficulty breathing. LTV dressing saturated with serosang drainage, removed by RN. Incision care provided using hibiclens per MD order, tolerated well by pt. Incision is C/D/I, care and surgical site infection education provided to pt. Incision re-dressed with telfa and tegaderm. Pt tolerated activity to BR well, assisted with pericare. Pt unable to void at time of ambulation, bed linens changed by staff. Scant amount of vaginal bleeding noted, peripads and mesh underwear applied. Assisted pt back to bed, locked and in lowest position, side rails up x2, call light within reach. Will continue to monitor.
[2022-06-19] VITALS (8 sets, daily range): BP systolic 106–154; BP diastolic 65–86; PULSE 66–81; RESP 16–19; TEMP 36.4–36.9; O2SAT 96–99
--- NOTE | 2022-06-19 04:22 | PC.NURSE ---
A&OX4. TOLERATING RA WELL. PT HAS BEEN UP INDEPENDENTLY, WALKING TO AND FROM BATHROOM THIS SHIFT. BOWEL SOUNDS ACTIVE TO ALL QUADS PER AUSCULTATION. HAS HAD ADEQUATE U/O. PT'S PAIN IS WELL CONTROLLED. DOES C/O PAIN WHEN SHE COUGHS. SPLINTS EFFECTIVELY WITH PILLOW. IS USING I.S. EFFECTIVELY. PAIN MED PER JAN. REPORTS ADEQUATE RELIEF. PT DID SHOWER THIS SHIFT, TOLERATED WELL. INCISION CDI, NEW DX APPLIED. PT HAS SLEPT INTERMITTENTLY T/O SHIFT. NO OTHER NEEDS OR C/O NOTED. VSS.
[2022-06-19 07:12] LABS: Basophils % 0.3 % (0.1-2.0); Eosinophils # 0.3 K/mm3 (0.0-0.4); Eosinophils % 1.9 % (0.1-12.0); Hematocrit 41.8 % (37.0-47.0); Hemoglobin 13.6 g/dL (12.2-16.2); Lymphocytes # 1.5 K/mm3 (0.7-4.5); Lymphocytes % 11.5 % (10-50); Mean Corpuscular HGB Conc 32.6 g/dL (31.8-35.4); Mean Corpuscular Hemoglobin 31.7 pg (27.0-31.2); Mean Corpuscular Volume 97.3 fl (81-99); Mean Platelet Volume 7.7 fl (7.4-10.4); Monocytes # 0.8 K/mm3 (0.1-1.0); Monocytes % 5.7 % (1.7-9.3); Neutrophils # 10.6 K/mm3 (1.8-7.8); Neutrophils % 80.6 % (37.0-80.0); Platelet Count 253 K/mm3 (142-424); Red Blood Count 4.29 M/mm3 (4.20-5.40); Red Cell Distribution Width 13.6 % (11.5-17.5); White Blood Count 13.2 K/mm3 (4.8-10.8)
[2022-06-19 07:15] LABS: Chloride 108 mmol/L (98-107); Potassium 4.2 mmoL/L (3.5-5.1); Sodium 136 mmol/L (136-145)
[2022-06-19 07:18] LABS: Anion Gap 9.2 mEq/L (5-15); Blood Urea Nitrogen 9 mg/dl (7-17); Calcium 8.5 mg/dl (8.4-10.2); Carbon Dioxide 23 mmol/L (22.0-30.0); Creatinine Clearance Estimated 204 mL/min (50-200); Estimated Glomerular Filt Rate 134 ml/min (>60); GFR (African American) 162 ML/MIN (>60); Glucose 132 mg/dl (74-100)
--- NOTE | 2022-06-19 07:55 | HMH.ANESII ---
[facility] Anesthesia Record Part II Discharge Time: 11:10 Destination: Obstetric PACU nurse assessment reviewed?: Yes Patient Condition:: Good Anesthesia Complications:: None Swallowing reflex intact?: Yes Cyanosis?: No Blood Pressure: 145/85 Pulse Rate: 77 Temperature: 97.7 F Mental Status: Alert & Oriented Pain level:: 0 Nausea and/or vomitting:: None Intake, IV Amount: 0
--- NOTE | 2022-06-19 08:20 | HMH.ACPN2 ---
Internal Medicine - PN: Subj *Date: 06/19/22 *Time: 08:20 Interval history: POD # 1 s/p SEEMA, left salpingo-oophorectomy Resting comfortably in bed. Pain control is sufficient. She is tolerating regular diet. Voiding without difficulty and passing flatus. No BM. Denies fever/chills, chest pain. Admits to a little shortness of breath but believes it is her anxiety. Denies swelling and calf pain. Exam Vital signs and Labs for Last 24 Hours: Temp Pulse Resp BP Pulse Ox 97.7 F 77 16 145/85 H 98 06/19/22 07:56 06/19/22 07:56 06/19/22 04:00 06/19/22 07:56 06/19/22 04:00 Laboratory Results - last 24 hr 06/18/22 09:00: Urine Color Yellow, Urine Appearance Clear, Urine pH 6.0, Ur Specific [place] >= 1.030, Urine Protein Trace, Urine Glucose (UA) Negative, Urine Ketones Negative, Urine Blood 1+, Urine Nitrate Negative, Urine Bilirubin Negative, Urine Urobilinogen 0.2, Ur Leukocyte Esterase Negative, Urine RBC 3-5, Urine WBC Occasional, Ur Squamous Epith Cells 3-5, Urine Bacteria Trace 06/19/22 07:03: WBC 13.2 H, RBC 4.29, Hgb 13.6, Hct 41.8, MCV 97.3, MCH 31.7 H, MCHC 32.6, RDW 13.6, Plt Count 253, MPV 7.7, Neut % (Auto) 80.6 H, Lymph % (Auto) 11.5, [place] % (Auto) 5.7, Eos % (Auto) 1.9, Baso % (Auto) 0.3, Neut # (Auto) 10.6 H, Lymph # (Auto) 1.5, [place] # (Auto) 0.8, Eos # (Auto) 0.3, Baso # (Auto) 0.0 06/19/22 07:03: Sodium 136, Potassium 4.2, Chloride 108 H, Carbon Dioxide 23, Anion Gap 9.2, BUN 9, Creatinine 0.50 L, Estimated Creat Clear 204, Estimated GFR 134, Est GFR ( Amer) 162 D, Glucose 132 H, Calcium 8.5 I & O for Last 24 hours: Intake & Output 06/16/22 06/17/22 06/18/22 06/19/22 23:59 23:59 23:59 23:59 Intake Total 2500 / 2500 0 / 0 Output Total 600 / 600 Balance 1900 / 1900 0 / 0 - Constitutional no acute distress, obese - *Routine HEENT Exam Head: Present: normocephalic Eye: Absent: conjunctivae pink ENT: Present: mucous membranes moist. Absent: dentition normal - *Routine Neck Exam Present: full ROM - *Routine Respiratory Exam Present: diminished air movement. Absent: rales, respiratory distress, wheezes, crackles - *Routine Cardiovascular Exam Present: RRR - *Routine Abdominal Exam Present: soft, normoactive bowel sounds, tenderness (appropriate tenderness postoperatively), obese. Absent: distended Comments: Bandage over incision without drainage - *Routine Extremities Exam Present: full ROM. Absent: edema, calf tenderness - *Routine Neurological Exam Present: alert, oriented X3 Assessment and Plan (1) Pelvic pain Status: Acute Category: Medical Code(s): R10.2 - Pelvic and perineal pain (2) Fluid in endometrial cavity Status: Acute Category: Medical Code(s): N85.9 - Noninflammatory disorder of uterus, unspecified (3) Cervical stenosis (uterine cervix) Status: Acute Category: Medical Code(s): N88.2 - Stricture and stenosis of cervix uteri (4) S/P endometrial ablation Status: Acute Category: Surgical Code(s): Z98.890 - Other specified postprocedural states (5) History of tubal ligation Status: Acute Category: Surgical Code(s): Z98.51 - Tubal ligation status (6) LGSIL on Pap smear of cervix Status: Acute Category: Medical Code(s): R87.612 - Low grade squamous intraepithelial lesion on cytologic smear of cervix (LGSIL) - Assessment and plan all Dx Assessment and Plan for all problems:: Continue routine postop care Encouraged increased ambulation Strongly encouraged and discussed importance of IS use
[2022-06-20 03:46] VITALS: BP 116/84; PULSE 77; RESP 20; TEMP 36.4; O2SAT 97
--- NOTE | 2022-06-20 04:06 | PC.NURSE ---
A&OX4. TOLERATING RA WELL. PT HAS SLEPT INTERMITTENTLY T/O SHIFT. DID WELL WITH PAIN CONTROL THROUGH THE FIRST HALF OF THE SHIFT. AT 0400 REASSESSMENT, PT CAN'T GET OOB ON HER OWN. STATES HER ABD PAIN IS 10 ON 1-10 SCALE. ASSISTED PT TO BATHROOM. HAS HAD ADEQUATE U/O THIS SHIFT. NO BM NOTED. PT MEDICATED WITH PRN MEDICATIONS PER JAN FOR ABD PAIN AND GAS PAIN. WARM COMPRESS PROVIDED. PT HAS HAD NO OTHER C/O. VSS.
[2022-06-20 08:35] VITALS: BP 118/86; PULSE 84; RESP 20; TEMP 37.1; O2SAT 96
--- NOTE | 2022-06-20 10:23 | HMH.ACPN2 ---
Internal Medicine - PN: Subj *Date: 06/20/22 *Time: 10:23 Interval history: POD #2 SEEMA/LSO Initial progress was very good, but she is now complaining of nausea/vomiting She advanced to a regular diet very quickly and thinks she may have overdone it She also smokes 2PPD and is having a lot of mucus and sinus drainage She is passing gas and has good bowel sounds Pain control has been sufficient with po meds before she began having vomiting Exam Vital signs and Labs for Last 24 Hours: Temp Pulse Resp BP Pulse Ox 98.8 F 84 20 118/86 96 06/20/22 08:35 06/20/22 08:35 06/20/22 08:35 06/20/22 08:35 06/20/22 08:35 I & O for Last 24 hours: Intake & Output 06/17/22 06/18/22 06/19/22 06/20/22 11:59 11:59 11:59 11:59 Intake Total 2500 / 2500 0 / 0 Output Total 600 / 600 Balance 2500 / 2500 -600 / -600 Narrative: CONSTITUTIONAL: no acute distress HEENT: mucous membranes moist PULMONARY: breathing unlabored without audible wheezes CV: no tachycardia or visible JVD; normal LE peripheral pulses ABD: soft, ND; appropriately tender but no rebound/guarding +BS SKIN: incision well approximated with no drainage, erythema or induration EXT: no edema LEs NEURO: alert/oriented, no altered mental status PSYCH: appropriate mood and demeanor Assessment and Plan (1) Pelvic pain Status: Acute Category: Medical Code(s): R10.2 - Pelvic and perineal pain (2) Fluid in endometrial cavity Status: Acute Category: Medical Code(s): N85.9 - Noninflammatory disorder of uterus, unspecified (3) Cervical stenosis (uterine cervix) Status: Acute Category: Medical Code(s): N88.2 - Stricture and stenosis of cervix uteri (4) S/P endometrial ablation Status: Acute Category: Surgical Code(s): Z98.890 - Other specified postprocedural states (5) History of tubal ligation Status: Acute Category: Surgical Code(s): Z98.51 - Tubal ligation status (6) LGSIL on Pap smear of cervix Status: Acute Category: Medical Code(s): R87.612 - Low grade squamous intraepithelial lesion on cytologic smear of cervix (LGSIL) (7) S/P hysterectomy Status: Acute Category: Surgical Code(s): Z90.710 - Acquired absence of both cervix and uterus - Assessment and plan all Dx Assessment and Plan for all problems:: She will continue IV anti-emetics She was advised to back down to liquid diet for now PPI started Continue to monitor-- no discharge at this time
[2022-06-20 13:30] VITALS: BP 116/84; PULSE 72; RESP 22; TEMP 37; O2SAT 97
[2022-06-20 16:23] VITALS: BP 108/69; PULSE 77; RESP 18; TEMP 36.8; O2SAT 98
--- NOTE | 2022-06-20 18:30 | PC.NURSE ---
1623 RN reassessment completed at this time. Pt has rested well this shift. Medicated with PRN IV dilaudid x1 this shift for c/o incision pain. Pt had several episodes of vomiting earlier in the shift, resolved for several hours, but c/o increasing nausea at this time. Medicated per EMAR with zofran 4 mg IV, will continue to monitor. Abd soft and mildly tender with BS active in all quads. Pt reports belching, denies any flatus. Pt has voided several times this shift, no BM. Lung sounds CTA with scattered wheezes, no c/o SOA. Pt tolerated ambulating to BR several times this shift without any issue, has been encouraged to walk in the hallway but has not at this time. Incentive spirometer use has also been encouraged to pt. VSS. Bed locked and in lowest position with side rails up x2, call light within reach, will continue to monitor.
--- NOTE | 2022-06-20 18:42 | PC.NURSE ---
1630 Incision care completed at this time. T&T dressing removed, incision C/D/I with jolie, no s/s infection. Incision cleaned with hibiclens, tolerated well by pt. 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 Education provided to pt on surgical site care and surgical site infection.
[2022-06-20 20:00] VITALS: BP 123/75; PULSE 80; RESP 18; TEMP 36.8; O2SAT 94
[2022-06-21 03:02] VITALS: BP 131/86; PULSE 88; RESP 18; TEMP 37.2; O2SAT 95
--- NOTE | 2022-06-21 04:19 | PC.NURSE ---
A&OX4. TOLERATING RA WELL. HAS SLEPT INTERMITTENTLY T/O SHIFT. HAS C/O CONTINUOUS ABD/INCISIONAL PAIN AND NA//VO. PT HAS HAD 1 FULL BAG OF EMESIS, DARK GREEN/BROWN IN COLOR. TX WITH PRN MEDICATION PER JAN. EFFECTIVENESS NOTED. UP TO BATHROOM INDEPENDENTLY. NO OTHER NEEDS NOTED THUS FAR. VSS.
[2022-06-21 08:00] VITALS: BP 119/83; PULSE 83; RESP 18; TEMP 37.4; O2SAT 93
[2022-06-21 09:25] VITALS: O2SAT 93
--- NOTE | 2022-06-21 12:05 | HMH.DCSUM ---
General - General Admission date:: 06/18/22 Discharge date: 06/21/22 HPI HPI: 42 yo female scheduled for hysterectomy for management of pelvic pain Previous hysterectomy for management of HMB Since time of ablation she is having ongoing pelvic pain Ultrasound for evaluation of pelvic pain showed persistent fluid collection in uterine cavity Hysterocopic evaluation was unsuccessful due to cervical stenosis Hospital Course Hospital Course: Postop nausea and vomiting on POD #1 but resting comfortably for most of POD 2 and 3 She still has some nausea but declines to switch pain medication +bowel sounds, + flatus; no abd distention She is discharged home on POD #3 in stable condition Staple removal prior to discharge She will f/u in office for incision check in 2 weeks Objective Vital signs: Temp Pulse Resp BP Pulse Ox 99.3 F 83 18 119/83 93 L 06/21/ 08:00 06/21/ 08:00 06/21/22 08:00 06/21/22 08:00 06/21/22 09:25 Narrative: CONSTITUTIONAL: no acute distress HEENT: mucous membranes moist PULMONARY: breathing unlabored without audible wheezes CV: no tachycardia or visible JVD; normal LE peripheral pulses ABD: soft, ND; appropriately tender but no rebound/guarding SKIN: incision well approximated with no drainage, erythema or induration EXT: no edema LEs NEURO: alert/oriented, no altered mental status PSYCH: appropriate mood and demeanor DS: Diagnosis - Discharge Diagnosis (1) Pelvic pain Status: Acute (2) Fluid in endometrial cavity Status: Acute (3) Cervical stenosis (uterine cervix) Status: Acute (4) S/P endometrial ablation Status: Acute (5) History of tubal ligation Status: Acute (6) LGSIL on Pap smear of cervix Status: Acute (7) S/P hysterectomy Status: Acute Discharge Plan - Patient Discharge Instructions ACTIVITY: Continue current activity DIET: regular diet - Follow up Plan Disposition: Home, Self-Care Condition at discharge:: Stable Home Medications: Home Medications Medication Instructions Recorded Confirmed Type gabapentin 100 mg capsule 100 mg PO QID cap 03/22/22 06/14/22 History hydroxyzine HCl 25 mg tablet 25 mg PO TID tab 04/23/22 06/14/22 History ondansetron 8 mg disintegrating 8 mg PO DAILYP PRN tab 04/23/22 06/18/22 History tablet Albuterol Sulfate [Proventil-HFA 2 puffs IH Q6HP PRN 04/24/22 06/18/22 History 90mcg/puff Inh] Dicyclomine HCl [Bentyl 10mg 10 mg PO QID 06/18/22 06/18/22 History capsule] Ibuprofen [Motrin 400mg 800 mg PO Q6HP PRN #40 tab 06/21/22 Rx tablet] Oxycodone HCl [OxyIR 5mg tablet] 5 - 10 mg PO Q4HP PRN #24 tab 06/21/22 Rx Prescriptions/Medication Reconciliation: New Oxycodone HCl [OxyIR 5mg tablet] 5 - 10 mg PO Q4HP PRN #24 tab PRN Reason: Moderate To Severe Pain Ibuprofen [Motrin 400mg tablet] 800 mg PO Q6HP PRN #40 tab PRN Reason: Mild Pain Acetaminophen [Acetaminophen 325mg tab] 650 mg PO Q4HP PRN tab PRN Reason: Mild Pain Continued ondansetron 8 mg disintegrating tablet 8 mg PO DAILYP PRN tab PRN Reason: Nausea gabapentin 100 mg capsule 100 mg PO QID cap hydroxyzine HCl 25 mg tablet 25 mg PO TID tab Albuterol Sulfate [Proventil-HFA 90mcg/puff Inh] 2 puffs IH Q6HP PRN PRN Reason: Shortness Of Breath Dicyclomine HCl [Bentyl 10mg capsule] 10 mg PO QID - Problem Reconciliation Problems Reviewed?: Yes
--- NOTE | 2022-06-21 14:10 | PC.NURSE ---
IV discontinued w/o incident, catheter intact, tolerated well. Fabian also removed, incision cleased wtih Hibiclens, Mastisol glue and Steri-Strips applied. Incision healing well, moderated amt of bruising noted to upper half. Reviewed incision care with pt once discharged home. Verbalized understanding.
--- NOTE | 2022-06-24 14:19 | CARE MANAGER ---
Spoke with patient for post-discharge phone interview, patient states that she is feeling bad and has been vomiting this am patient states that she is coming back to see MD this afternoon. Patient has no other needs at this time.
== END 2022-06-21 14:53 | disposition home or self-care (01) | DRG 743 ==
LOC: OB 11:13
PROVIDERS: Admitting Provider Obstetrics & Gynecology; PCP Family Medicine; Visit Provider Obstetrics & Gynecology
PROC: 0UT90ZZ Resection of Uterus, Open Approach (ICD-10-PCS; CPT 58150; principal; 2022-06-18 07:30)
DX: N87.9 Dysplasia of cervix uteri, unspecified (principal); R10.2 Pelvic and perineal pain; N88.2 Stricture and stenosis of cervix uteri; F17.210 Nicotine dependence, cigarettes, uncomplicated
CPT/HCPCS: 58150; 80048; 80053; 80305; 81001; 81025; 85025; 96374; C9803; J2405; U0003; U0005

== ENCOUNTER 2022-06-23 13:11 | Emergency (ER) | payer MEDICAID, SELFPAY ==
[2022-06-23 13:33] VITALS: BP 144/98; PULSE 68; O2SAT 98
[2022-06-23 13:40] VITALS: BP 148/98; PULSE 70; RESP 18; TEMP 36.8; O2SAT 99; BMI 35.0
--- NOTE | 2022-06-23 13:43 | HMH.EDGENADL ---
ED Disposition Clinical Impression: Pain at surgical incision Disposition: Home, Self-Care Condition on Discharge: Good Instructions: DI for Skin Abscess Additional Instructions: Follow-up with your assistant director of residence life as scheduled for further definitive management and care for your incision site. Take Tylenol, ibuprofen for symptomatic relief. Nausea control can be done with Zofran. If you have any concerning signs or symptoms, including inability to tolerate food or drink by mouth, inability to pass gas, intractable abdominal pain, or any other concerning symptoms, return to the emergency department or your primary care provider, or your assistant director of residence life for further evaluation. Prescriptions: Ondansetron [Zofran 4mg ODT] 4 mg PO TIDP PRN #10 tab PRN Reason: Nausea Transmission Status: Received by [id number] Referrals: Tiffany Hsokins [Primary Care Provider] - - Critical Care Critical Care Time: No Attestation: On 06/23/22, the high probability of a clinically significant, sudden or life threatening deterioration of the following system(s) required my full and direct attention, intervention and personal management. The time I documented below is in addition to time spent performing reported procedures but includes the following listed in this critical care notation. Medical Decision Making - Damon Inquiry Pt receiving controlled substance: No Vital Signs: 06/23/22 13:33 06/23/22 13:40 06/23/22 13:48 Temperature 98.2 F Temperature Source Oral Pulse Rate 68 72 Pulse Rate [Left Radial] 70 Respiratory Rate 18 Blood Pressure 144/98 H 131/94 H Blood Pressure [Right Arm] 148/98 H Blood Pressure Mean 121 106 Blood Pressure Mean [Right Arm] 114 02 Sat by Pulse Oximetry 98 99 97 Oxygen Delivery Method Room Air 06/23/22 14:03 06/23/22 15:42 Temperature 98.2 F Temperature Source Oral Pulse Rate 67 83 Pulse Rate [Left Radial] Respiratory Rate 18 Blood Pressure 119/84 119/67 Blood Pressure [Right Arm] Blood Pressure Mean 95 Blood Pressure Mean [Right Arm] 02 Sat by Pulse Oximetry 98 Oxygen Delivery Method Room Air - Lab Data Lab Results 06/23/22 14:13: WBC 6.9, RBC 4.14 L, Hgb 12.9, Hct 40.0, MCV 96.8, MCH 31.1, MCHC 32.1, RDW 13.5, Plt Count 367, MPV 8.1, Neut % (Auto) 47.7, Lymph % (Auto) 42.2, Schley % (Auto) 6.1, Eos % (Auto) 2.9, Baso % (Auto) 1.1, Neut # (Auto) 3.3, Lymph # (Auto) 2.9, Schley # (Auto) 0.4, Eos # (Auto) 0.2, Baso # (Auto) 0.1 06/23/22 14:13: Sodium 138, Potassium 4.0, Chloride 106, Carbon Dioxide 27, Anion Gap 9.0, BUN 4 L, Creatinine 0.60, Estimated Creat Clear 170, Estimated GFR 109, Est GFR ( Amer) 131, Glucose 95, Calcium 8.5, Total Bilirubin 0.1 L, AST 20, ALT 10 L, Alkaline Phosphatase 64, Total Protein 6.4, Albumin 3.4 L, Globulin 3.0, Albumin/Globulin Ratio 1.1, Lipase 45 06/23/22 14:13: Lactate 0.6 L Result diagrams: 06/23/22 14:13 06/23/22 14:13 Orders (Tests/Meds): ED MEDICATIONS Discontinued Medications Generic Name Dose Route Start Last Admin Trade Name Freq PRN Reason Stop Dose Admin Hydrocodone Bitart/Acetaminophen 1 tab 06/23/22 13:42 06/23/22 14:24 Hydrocodone/Apap 5/325 Mg Tablet PO 06/23/22 13:43 1 tab ONCE ONE Administration Ondansetron HCl 4 mg 06/23/22 13:42 06/23/22 14:24 Ondansetron 4mg/2ml Vial IV 06/23/22 13:43 4 mg ONCE ONE Administration ORDERS Category Date Time Status Blood Culture Stat Micro 06/23/22 14:13 Received Medical Decision Narrative: This is a 42-year-old female with history of anxiety, recent abdominal hysterectomy presenting with incisional pain. On arrival, patient hemodynamically stable, alert, oriented, moving all extremities spontaneously, pupils equal and reactive to light, GCS 15. Differential includes infection, wound dehiscence, fascial dehiscence, abscess, cellulitis, postoperative nerve pain, among others. Work-up significant for nonactionable
[2022-06-23 13:48] VITALS: BP 131/94; PULSE 72; O2SAT 97
[2022-06-23 14:03] VITALS: BP 119/84; PULSE 67; O2SAT 98
--- NOTE | 2022-06-23 14:32 | PC.NURSE ---
Assisted pt to bathroom via wheelchair.
--- NOTE | 2022-06-23 14:38 | PC.NURSE ---
Assisted pt back to room via wheelchair. Sent UA to lab.
[2022-06-23 14:49] LABS: Basophils # 0.1 K/mm3 (0-0.2); Basophils % 1.1 % (0.1-2.0); Eosinophils # 0.2 K/mm3 (0.0-0.4); Eosinophils % 2.9 % (0.1-12.0); Hemoglobin 12.9 g/dL (12.2-16.2); Lymphocytes # 2.9 K/mm3 (0.7-4.5); Lymphocytes % 42.2 % (10-50); Mean Corpuscular HGB Conc 32.1 g/dL (31.8-35.4); Mean Corpuscular Hemoglobin 31.1 pg (27.0-31.2); Mean Corpuscular Volume 96.8 fl (81-99); Mean Platelet Volume 8.1 fl (7.4-10.4); Monocytes # 0.4 K/mm3 (0.1-1.0); Monocytes % 6.1 % (1.7-9.3); Neutrophils # 3.3 K/mm3 (1.8-7.8); Neutrophils % 47.7 % (37.0-80.0); Platelet Count 367 K/mm3 (142-424); Red Blood Count 4.14 M/mm3 (4.20-5.40); Red Cell Distribution Width 13.5 % (11.5-17.5); White Blood Count 6.9 K/mm3 (4.8-10.8)
[2022-06-23 14:52] LABS: Lactic Acid 0.6 mmol/L (0.7-2.1)
[2022-06-23 14:53] LABS: Alanine Aminotransferase 10 U/L (12-78); Albumin Level 3.4 g/dl (3.5-5.0); Albumin/Globulin Ratio 1.1 (1.1-1.8); Alkaline Phosphatase 64 U/L (38-126); Aspartate Amino Transferase 20 U/L (14-36); Blood Urea Nitrogen 4 mg/dl (7-17); Calcium 8.5 mg/dl (8.4-10.2); Carbon Dioxide 27 mmol/L (22.0-30.0); Chloride 106 mmol/L (98-107); Creatinine Clearance Estimated 170 mL/min (50-200); Estimated Glomerular Filt Rate 109 ml/min (>60); GFR (African American) 131 ML/MIN (>60); Glucose 95 mg/dl (74-100); Lipase 45 U/L (23-300); Sodium 138 mmol/L (136-145); Total Protein,Serum 6.4 g/dl (6.3-8.2)
[2022-06-23 14:54] LABS: Bilirubin,Total 0.1 mg/dl (0.2-1.3)
[2022-06-23 15:42] VITALS: BP 119/67; PULSE 83; RESP 18; TEMP 36.8; O2SAT 98
== END 2022-06-23 15:43 | disposition home or self-care (01) ==
PROVIDERS: Emergency Provider Emergency Medicine; PCP Family Medicine
DX: G89.18 Other acute postprocedural pain (principal)
CPT/HCPCS: 80053; 83605; 83690; 85025; 87040; 96374; 99284; J2405

== ENCOUNTER → 2022-07-15 08:41 | Outpatient (POV) | payer MEDICAID, SELFPAY ==
[2022-07-15 08:55] VITALS: BP 127/84; PULSE 77; RESP 18; TEMP 36.6; O2SAT 96; BMI 33.6
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
== END ==
PROVIDERS: Visit Provider Nurse Practitioner Family
DX: M46.1 Sacroiliitis, not elsewhere classified (principal); M54.50 Low back pain, unspecified; M25.551 Pain in right hip; M25.552 Pain in left hip; M25.511 Pain in right shoulder; M25.512 Pain in left shoulder; M25.561 Pain in right knee; M25.562 Pain in left knee
CPT/HCPCS: 99202; G0463

== ENCOUNTER 2022-07-15 09:35 | Emergency (ER) | payer MEDICAID, SELFPAY ==
[2022-07-15] VITALS (7 sets, daily range): BP systolic 98–123; BP diastolic 65–88; PULSE 61–78; RESP 16–20; TEMP 36.6–36.9; O2SAT 98–100; BMI 35.0
--- NOTE | 2022-07-15 10:00 | PC.NURSE ---
pt c/o abd pain md aware
--- NOTE | 2022-07-15 10:18 | HMH.EDGENADL ---
Discharge Plan Disposition Patient Disposition: Home, Self-Care Condition: Good Prescriptions Prescriptions: No Action gabapentin 100 mg capsule 100 mg PO QID hydroxyzine HCl 25 mg tablet 25 mg PO TID ondansetron 8 mg tablet,disintegrating 8 mg PO DAILYP PRN (Reason: Nausea) naproxen 500 mg tablet 500 mg PO BID PRN (Reason: pain) Qty: 40 2RF albuterol sulfate 200 PUFF HFA aerosol inhaler 2 puffs IH Q6HP PRN (Reason: Shortness Of Breath) acetaminophen 325 MG tablet 650 mg PO Q4HP PRN (Reason: Mild Pain) 0RF Referrals Follow up/Referrals: Tiffany Hoskins [Primary Care Provider] - See instructions Activity Restrictions/Add. Instructions Additional Instructions/Restrictions: Follow-up with gynecology as scheduled for further definitive postop follow-up and management. If you have inability to tolerate p.o. intake, inability to pass gas, abdominal meds, urinate, or any other concerning signs or symptoms, return to the emergency department for further evaluation. Clinical Impressions Clinical Impression: Pain at surgical incision Discharge ED Provider: Dougie Ruiz General Adult HPI General Chief complaint: PAIN Stated complaint: post op hysteractmy 06/19 tear Time Seen by Provider: 07/15/22 09:40 Mode of Arrival: Ambulatory Source of Information: Patient Limitations: No Limitations Description of Symptoms (Recalled from ER Triage Doc. by RN): c/o feeling a tear in her left lower abdomen after coughing and post hysterectomy, states when she got up she felt discomfort in that area History of Present Illness HPI narrative: This a 42-year-old female with total abdominal hysterectomy on 06/19 presenting with lower abdominal pain. Patient states that approximately 3 days prior to arrival, she developed URI symptoms, had coughing fit, at that time, she felt acute pain in her lower abdomen. The pain is 8 out of 10, stabbing, does not radiate, is in her incision site at the far right-hand aspect. She has been taking Tylenol and ibuprofen as well as oxycodone with mild relief. Movement and coughing make it worse. Denies any drainage from the wound, fevers, chills, nausea, vomiting, dysuria, hematuria, abnormal vaginal discharge or bleeding. Last bowel movement was 1 day prior to arrival and was normal for her. She has been passing gas without issue. She states that she has had some difficulty urinating requiring straining, but denies any other relevant symptoms. Related Data Home Medications Medication Instructions Recorded Confirmed gabapentin 100 mg capsule 100 mg PO QID Pain 03/22/22 07/15/22 hydroxyzine HCl 25 mg tablet 25 mg PO TID Anxiety 04/23/22 07/15/22 ondansetron 8 mg disintegrating 8 mg PO DAILYP PRN Nausea 04/23/22 07/15/22 tablet albuterol sulfate 90 mcg/actuation 2 puffs inhalation Q6HP PRN 04/24/22 07/15/22 aerosol inhaler Shortness Of Breath Previous Rx's Medication Instructions Recorded acetaminophen 325 mg tablet 650 mg PO Q4HP PRN Mild Pain 06/21/22 naproxen 500 mg tablet 500 mg PO BID PRN pain #40 tabs 07/02/22 acetaminophen 300 mg-codeine 30 mg 1 tab PO Q8H PRN pain #21 tabs 07/15/22 tablet sulfamethoxazole 800 1 tab PO BID #28 tabs 07/15/22 mg-trimethoprim 160 mg tablet (Bactrim DS) Allergies Allergy/AdvReac Type Severity Reaction Status Date / Time No Known Allergies Allergy Verified 07/02/22 10:43 PFSH PFSH Medical History (Updated 07/15/22 @ 10:29 by Dougie Ruiz MD) Cervical stenosis (uterine cervix) LGSIL on Pap smear of cervix Surgical History H/O total hysterectomy History of left salpingo-oophorectomy History of tubal ligation S/P endometrial ablation S/P hysterectomy Social History (Updated 07/02/22 @ 12:21 by Mari Russell MD) Smoking Status: Current every day smoker tobacco type: cigarettes packs per day: 2 second hand exposure: No alcohol intake: never
--- NOTE | 2022-07-15 10:19 | CT_ITS ---
FINAL REPORT TECHNIQUE: Axial CT images of the abdomen were obtained with IV contrast only. Coronal reformatted images were also obtained. This study was performed with techniques to keep radiation doses as low as reasonably achievable (ALARA). Individualized dose reduction techniques using automated exposure control or adjustment of mA and/or kV according to the patient''s size were employed. CLINICAL HISTORY: recent post op SEEMA, lower abdominal pain after feeling a pop near incision site COMPARISON: 03/18/2022, 05/08/2022 FINDINGS: Lung bases reveal mild bibasilar atelectasis. The liver has an unremarkable appearance, without evidence of mass. There is mild, nonspecific gallbladder wall thickening. There is no evidence of biliary ductal dilatation. The pancreas appears normal. The spleen size is within normal limits. There is no evidence of renal mass or hydronephrosis. There is no evidence of adenopathy. There are multiple, fluid-filled bowel loops which are nonspecific, favor ileus. There has been interval hysterectomy with a septated fluid collection seen in the right adnexa measuring 6.3 cm favored to represent seroma, hematoma or abscess. IMPRESSION: Multiple fluid-filled, nonspecific bowel loops, favor ileus. Septated fluid collection in the right adnexa measuring 6.3 cm which may represent seroma, hematoma or abscess. Reviewed, Interpreted and Dictated by Brennon Larson III, MD Transcribed by Le Costa Authenticated and [facility]
[2022-07-15 10:41] LABS: Basophils # 0.2 K/mm3 (0-0.2); Basophils % 2.4 % (0.1-2.0); Eosinophils # 0.2 K/mm3 (0.0-0.4); Eosinophils % 2.9 % (0.1-12.0); Hemoglobin 15.3 g/dL (12.2-16.2); Lymphocytes % 38.6 % (10-50); Mean Corpuscular HGB Conc 32.5 g/dL (31.8-35.4); Mean Corpuscular Hemoglobin 30.4 pg (27.0-31.2); Mean Corpuscular Volume 93.7 fl (81-99); Mean Platelet Volume 7.5 fl (7.4-10.4); Monocytes # 0.5 K/mm3 (0.1-1.0); Monocytes % 5.8 % (1.7-9.3); Neutrophils # 3.9 K/mm3 (1.8-7.8); Neutrophils % 50.3 % (37.0-80.0); Platelet Count 388 K/mm3 (142-424); Red Blood Count 5.01 M/mm3 (4.20-5.40); Red Cell Distribution Width 13.8 % (11.5-17.5); White Blood Count 7.7 K/mm3 (4.8-10.8)
--- NOTE | 2022-07-15 10:44 | PC.NURSE ---
PT BACK FROM CT
[2022-07-15 10:50] LABS: Alanine Aminotransferase 12 U/L (12-78); Albumin Level 4.4 g/dl (3.5-5.0); Albumin/Globulin Ratio 1.3 (1.1-1.8); Alkaline Phosphatase 74 U/L (38-126); Anion Gap 12.6 mEq/L (5-15); Aspartate Amino Transferase 27 U/L (14-36); Bilirubin,Total 0.3 mg/dl (0.2-1.3); Blood Urea Nitrogen 7 mg/dl (7-17); Carbon Dioxide 26 mmol/L (22.0-30.0); Chloride 105 mmol/L (98-107); Creatinine Clearance Estimated 127 mL/min (50-200); Estimated Glomerular Filt Rate 78 ml/min (>60); GFR (African American) 94 ML/MIN (>60); Globulin 3.4 g/dL (1.3-3.2); Glucose 86 mg/dl (74-100); Lipase 52 U/L (23-300); Potassium 3.6 mmoL/L (3.5-5.1); Sodium 140 mmol/L (136-145); Total Protein,Serum 7.8 g/dl (6.3-8.2)
[2022-07-15 10:51] LABS: Lactic Acid 0.6 mmol/L (0.7-2.1)
--- NOTE | 2022-07-15 12:17 | PC.NURSE ---
supervisor electrolytic tinning paged
--- NOTE | 2022-07-15 12:30 | PC.NURSE ---
pt updated on plan of care
[2022-07-15 12:33] LABS: Microscopic, Urine URINE MICROSCOPIC (MICROSCOPIC)
--- NOTE | 2022-07-15 12:33 | PC.NURSE ---
assisted pt to restroom, obtained urine specimen. Pt had vaginal discharge in underwear when she went to the bathroom pt report this had recently started. Will notify JACQUELINE HATFIELD. Pt assisted back to bed, pt tolerated ambulation well. Additional warm blanket given
[2022-07-15 12:43] LABS: Appearance,Urine SL CLOUDY (Clear); Bilirubin,Urine Negative (Negative); Blood, Urine TRACE-I (Negative); Color,Urine DK YELLOW (Yellow); Glucose,Urine (UA) Negative (Negative); Ketones,Urine Negative (Negative); Leukocyte Esterase,Urine Negative (Negative); Nitrate,Urine Negative (Negative); PH,Urine 5.5 (5.0-8.5); Protein,Urine Negative (Negative); Urobilinogen,Urine 0.2 EU/dl (0.2)
--- NOTE | 2022-07-15 13:00 | PC.NURSE ---
updated pt on plan of care
[2022-07-15 13:18] LABS: Bacteria,Urine Trace /lpf; RBC,Urine Occasional #/hpf (0-3); Squamous Epithelial Cell,Urine Occasional #/hpf (0-5); WBC,Urine Occasional #/hpf (0-3)
--- NOTE | 2022-07-15 13:51 | PC.NURSE ---
office staff states Dr. Russell hasn't returned to office yet. Spoke with Pre-op staff Ebonie states dr. russell is finished with surgery not long ago. Internal Revenue Agent paging dr. russell.
--- NOTE | 2022-07-15 13:54 | PC.NURSE ---
JACQUELINE HATFIELD speaking with Dr. Russell
== END 2022-07-15 14:19 | disposition home or self-care (01) ==
PROVIDERS: Emergency Provider Emergency Medicine; PCP Family Medicine
DX: G89.18 Other acute postprocedural pain (principal); Z90.710 Acquired absence of both cervix and uterus
CPT/HCPCS: 74160; 80053; 81001; 83605; 83690; 85025; 87040; 96361; 96374; 96375; 96376; 99284; J2405; Q9967

== ENCOUNTER → 2022-07-23 11:04 | Outpatient (CLI) | payer MEDICAID, SELFPAY ==
--- NOTE | 2022-07-23 11:19 | XR_ITS ---
FINAL REPORT CLINICAL HISTORY: shoulder pain FINDINGS: LEFT SHOULDER Three views demonstrate no acute fracture or dislocation. The visualized joint spaces are normally aligned. The soft tissues are unremarkable. IMPRESSION: No acute process. Reviewed, Interpreted and Dictated by Tarun Choe MD Transcribed by Crystal Barrett Authenticated and . [facility]
--- NOTE | 2022-07-23 11:19 | XR_ITS ---
FINAL REPORT CLINICAL HISTORY: knee pain FINDINGS: RIGHT KNEE 3 views of the right knee were obtained. There is no acute fracture or dislocation. Visualized joint spaces are normally aligned. Soft tissues are unremarkable. IMPRESSION: No acute bony abnormality. Reviewed, Interpreted and Dictated by Tarun Choe MD Transcribed by Crystal Barrett Authenticated and . [facility]
--- NOTE | 2022-07-23 11:19 | XR_ITS ---
FINAL REPORT CLINICAL HISTORY: knee pain FINDINGS: LEFT KNEE 3 views of the left knee were obtained. There is no acute fracture or dislocation. Visualized joint spaces are normally aligned. Soft tissues are unremarkable. IMPRESSION: No acute bony abnormality. Reviewed, Interpreted and Dictated by Tarun Choe MD Transcribed by Crystal Barrett Authenticated and [facility]
--- NOTE | 2022-07-23 11:19 | XR_ITS ---
FINAL REPORT CLINICAL HISTORY: shoulder pain FINDINGS: RIGHT SHOULDER Three views demonstrate no acute fracture or dislocation. The visualized joint spaces are normally aligned. The soft tissues are unremarkable. IMPRESSION: No acute process. Reviewed, Interpreted and Dictated by Tarun Choe MD Transcribed by Crystal Barrett Authenticated and [facility]
== END ==
PROVIDERS: PCP Family Medicine; Visit Provider Orthopaedic Surgery
DX: M25.511 Pain in right shoulder (principal); M25.512 Pain in left shoulder; M25.561 Pain in right knee; M25.562 Pain in left knee
CPT/HCPCS: 73030; 73562

== ENCOUNTER → 2022-08-05 10:09 | Outpatient (POV) | payer MEDICAID, SELFPAY ==
[2022-08-05 10:51] VITALS: BP 125/81; PULSE 90; RESP 18; TEMP 36.6; O2SAT 97; BMI 35.0
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
== END | disposition home or self-care (01) ==
PROVIDERS: PCP Family Medicine; Visit Provider Nurse Practitioner Family
DX: M46.1 Sacroiliitis, not elsewhere classified (principal); M25.511 Pain in right shoulder; M25.512 Pain in left shoulder; M54.50 Low back pain, unspecified; M25.561 Pain in right knee; M25.562 Pain in left knee; M70.61 Trochanteric bursitis, right hip; M70.62 Trochanteric bursitis, left hip
CPT/HCPCS: 99212; G0463

== ENCOUNTER 2022-08-13 11:25 | Day surgery (SDC) | payer MEDICAID, SELFPAY ==
[2022-08-13 11:29] VITALS: BP 157/103; PULSE 85; RESP 16; TEMP 36.6; O2SAT 98; BMI 34.5
[2022-08-13 11:46] VITALS: BP 127/85; PULSE 81; RESP 18; O2SAT 97
[2022-08-13 11:47] VITALS: BP 127/85; PULSE 81; RESP 18; O2SAT 98
--- NOTE | 2022-08-13 11:52 | P.PCN_ITS ---
Procedure Date: 08/13/22 Time: 11:52 Anesthesiologist:: Robin Steele CRNA Complications:: None Pre-procedure Diagnosis:: Bilateral sacroiliitis Post-procedure Diagnosis:: Same. Indications for Procedure:: Patient is a pleasant 42-year-old female who comes our clinic today for bilateral SI joint injections. Patient has not had these in the past. She complains of low back pain. She has extreme point tenderness over the bilateral SI joints upon examination. Procedure Details:: Procedure: Bilateral sacroiliac joint injections under fluoroscopy Informed consent was obtained and the risks and benefits of the procedure were explained to the patient.~ The patient was taken to the procedure room and noninvasive monitors were placed including a noninvasive blood pressure cuff and pulse oximeter.~ The patient was placed prone on the procedure table. Both hips were cleansed using Betadine as a cleansing solution. C-arm fluoroscopy was used to view the right sacroiliac joint.~ The skin and subcutaneous tissues were anesthetized using lidocaine 1.5% and a 25-gauge needle.~ After this, a 22-gauge spinal needle was inserted under fluoroscopic guidance into the inferior aspect of the right sacroiliac joint.~ Omnipaque dye was injected and good spread was seen throughout the joint.~ After this, approximately 5 mL of bupivacaine, 0.25% and Depo-Medrol, 40 mg was incrementally injected into the right sacroiliac joint. We then moved to the left sacroiliac joint.~ The skin and subcutaneous tissues were anesthetized using lidocaine 1.5% and a 25-gauge needle.~ After this, a 22- gauge spinal needle was inserted under fluoroscopic guidance into the inferior aspect of the left sacroiliac joint.~ Omnipaque dye was injected and good spread was seen throughout the joint. After this, approximately 5 mL of bupivacaine, 0.25% and Depo-Medrol, 40 mg was incrementally injected into the left sacroiliac joint.~ The patient tolerated the procedure well with no complications. The patient was observed in the Pain Clinic and then was discharged home neurologically intact. Plan and Disposition:: Patient was discharged without incident
[2022-08-13 11:53] VITALS: BP 131/92; PULSE 72; RESP 20; O2SAT 99
== END 2022-08-13 11:54 | disposition home or self-care (01) ==
PROVIDERS: PCP Family Medicine; Visit Provider Nurse Anesthetist, Certified Registered
DX: M46.1 Sacroiliitis, not elsewhere classified (principal); Z72.0 Tobacco use
CPT/HCPCS: 27096; G0260; J1030

== ENCOUNTER → 2022-08-27 10:44 | Outpatient (POV) | payer MEDICAID, SELFPAY ==
[2022-08-27 10:59] VITALS: BP 149/101; PULSE 49; RESP 18; TEMP 37; O2SAT 99; BMI 33.6
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
== END ==
PROVIDERS: PCP Family Medicine; Visit Provider Nurse Practitioner Family
DX: M46.1 Sacroiliitis, not elsewhere classified (principal); M25.511 Pain in right shoulder; M25.512 Pain in left shoulder; M25.561 Pain in right knee; M25.562 Pain in left knee; M54.50 Low back pain, unspecified; G89.29 Other chronic pain; G43.909 Migraine, unspecified, not intractable, without status migrainosus; Z72.0 Tobacco use
CPT/HCPCS: 99212; G0463

== ENCOUNTER → 2022-09-17 11:23 | Outpatient (POV) | payer MEDICAID, SELFPAY ==
[2022-09-17 11:40] VITALS: BP 126/88; PULSE 86; RESP 20; O2SAT 97; BMI 33.6
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
== END | disposition home or self-care (01) ==
PROVIDERS: PCP Family Medicine; Visit Provider Nurse Practitioner Family
DX: M25.511 Pain in right shoulder (principal); M25.512 Pain in left shoulder; M25.561 Pain in right knee; M25.562 Pain in left knee; M25.552 Pain in left hip; M25.551 Pain in right hip; G89.29 Other chronic pain
CPT/HCPCS: 99212; G0463

== ENCOUNTER 2022-10-02 19:44 | Emergency (ER) | payer MEDICAID, SELFPAY ==
[2022-10-02 21:00] VITALS: BP 134/97; PULSE 76; RESP 16; TEMP 37.1; O2SAT 99; BMI 38.7
[2022-10-02 21:21] VITALS: BP 134/97; PULSE 76; RESP 16; TEMP 37.1; O2SAT 98; BMI 35.2
--- NOTE | 2022-10-02 21:30 | XR_ITS ---
PROCEDURE INFORMATION: Exam: XR Thoracic Spine Exam date and time: 10/02/2022 9:31 PM Age: 42 years old Clinical indication: Pain in thoracic spine; Other: Not specified; Additional info: Fall TECHNIQUE: Imaging protocol: Radiologic exam of the thoracic spine. Views: 3 views. COMPARISON: 1. CT ABDOMEN W CON 07/15/2022 10:32 AM 2. CR XR LUMBAR SPINE 2-3V 10/02/2022 9:43 PM 3. CR XR CERVICAL SPINE 5V 10/02/2022 9:31 PM FINDINGS: Bones/joints: Normal. No acute fracture. Normal alignment. There is gentle dextroscoliosis estimated at 7 degrees. Soft tissues: Unremarkable. IMPRESSION: No acute findings.
--- NOTE | 2022-10-02 21:31 | XR_ITS ---
PROCEDURE INFORMATION: Exam: XR Lumbosacral Spine Exam date and time: 10/02/2022 9:43 PM Age: 42 years old Clinical indication: Low back pain; Additional info: Fall TECHNIQUE: Imaging protocol: Radiologic exam of the lumbosacral spine. Views: 2 or 3 views. COMPARISON: 1. CR XR PELVIS 1-2V 10/02/2022 9:41 PM 2. CR XR THORACIC SPINE 3V 10/02/2022 9:31 PM FINDINGS: Bones/joints: Normal. No acute fracture. Normal alignment. Soft tissues: Unremarkable. IMPRESSION: No acute findings.
--- NOTE | 2022-10-02 21:35 | XR_ITS ---
PROCEDURE INFORMATION: Exam: XR Cervical Spine Exam date and time: 10/02/2022 9:31 PM Age: 42 years old Clinical indication: Neck pain; Additional info: Fall TECHNIQUE: Imaging protocol: Radiologic exam of the cervical spine. Views: 4 or 5 views. COMPARISON: CR XR THORACIC SPINE 3V 10/02/2022 9:31 PM FINDINGS: Bones/joints: Unremarkable. No acute fracture. Normal alignment. The intervertebral disc spaces are well maintained at all levels. The odontoid is intact. Soft tissues: The prevertebral soft tissues are normal. Lungs: The lung apices are clear. IMPRESSION: No acute findings.
--- NOTE | 2022-10-02 21:36 | XR_ITS ---
PROCEDURE INFORMATION: Exam: XR Pelvis Exam date and time: 10/02/2022 9:41 PM Age: 42 years old Clinical indication: Pelvic pain; Additional info: Fall TECHNIQUE: Imaging protocol: Radiologic exam of the pelvis. Views: 1 or 2 view. COMPARISON: 1. CT ABDOMEN PELVIS W CON 03/17/2022 10:34 PM 2. CR XR LUMBAR SPINE 2-3V 10/02/2022 9:43 PM FINDINGS: Bones/joints: Unremarkable. No acute fracture. Soft tissues: Unremarkable. IMPRESSION: No acute findings.
--- NOTE | 2022-10-02 21:37 | XR_ITS ---
PROCEDURE INFORMATION: Exam: XR Chest Exam date and time: 10/02/2022 9:47 PM Age: 42 years old Clinical indication: Pain; Right-sided and left-sided; Additional info: Fall TECHNIQUE: Imaging protocol: Radiologic exam of the chest. Views: 4 or more views. COMPARISON: 1. CR XR CHEST 2V 10/09/2019 10:04 PM 2. CR XR THORACIC SPINE 3V 10/02/2022 9:31 PM FINDINGS: Lungs: Unremarkable. No consolidation. Pleural spaces: Unremarkable. No pleural effusion. No pneumothorax. Heart/Mediastinum: Unremarkable. No cardiomegaly. Bones/joints: Mild dextroscoliosis lumbar spine. No fracture. IMPRESSION: No acute findings.
--- NOTE | 2022-10-02 21:45 | HMH.EDBACK ---
Discharge Plan Disposition Patient Disposition: Home, Self-Care Prescriptions Prescriptions: New prednisone [prednisone] 20 mg tablet 20 mg PO BID Qty: 10 0RF No Action gabapentin 100 mg capsule 200 mg PO TID Rx Instructions: 200mg TID, Then 300mg at bedtime albuterol sulfate 200 PUFF HFA aerosol inhaler 2 puffs IH Q6HP PRN (Reason: Shortness Of Breath) Referrals Follow up/Referrals: Tiffany Hoskins [Primary Care Provider] - See instructions Clinical Impressions Clinical Impression: Lumbar back sprain, Acute cervical myofascial strain Instructions Patient Instructions: DI for Low Back Pain Discharge ED Provider: Sigifredo Batista Back Pain HPI General Chief Complaint: Back Pain/Injury Stated Complaint: AO 10/02 @home injured back Time Seen by Provider: 10/02/22 21:45 Mode of Arrival: Ambulatory Source of Information: Patient and Medical Record Limitations: No Limitations Description of Symptoms (Recalled from ER Triage Doc. by RN): Patient reports falling into a cabinet and falling on the floor. States hit lower back and neck. C/o pain to lower back that radiates into shoulder blades History of Present Illness HPI Narrative: trip and fall injury at home in bathroom with back pain and has hx of back pain followed by pcp MD Complaint: back injury Onset (ago): hour(s) Duration: intermittent Similar Symptoms Previously: Yes Location: lumbar spine and thoracic spine Severity: moderate Quality: dull Context: fall Associated symptoms: denies other symptoms Related Data Home Medications Medication Instructions Recorded Confirmed gabapentin 100 mg capsule 200 mg PO TID Pain 03/22/22 09/17/22 albuterol sulfate 90 mcg/actuation 2 puffs inhalation Q6HP PRN 04/24/22 09/17/22 aerosol inhaler Shortness Of Breath Previous Rx's Medication Instructions Recorded prednisone 20 mg tablet 20 mg PO BID #10 tabs 10/02/22 Allergies Allergy/AdvReac Type Severity Reaction Status Date / Time No Known Allergies Allergy Verified 07/23/22 11:55 [facility] Disclaimer: The information contained in this section may have been updated after the patient was seen, as this information can be updated by other users. Medical History Cervical stenosis (uterine cervix) LGSIL on Pap smear of cervix Surgical History H/O total hysterectomy History of left salpingo-oophorectomy History of tubal ligation S/P endometrial ablation S/P hysterectomy Social History (Updated 08/13/22 @ 11:35 by Myrna Woo RN) Smoking Status: Current every day smoker tobacco type: cigarettes packs per day: 2 second hand exposure: No alcohol intake: never substance use type: denies use current occupational status: other Travel in the last 8 weeks: None household members: children housing: house current occupational exposures/hazards: No caffeine: Yes ROS Obtained: Yes All systems reviewed & no additional complaints except as documented Physical Exam General General appearance: alert Head Head exam: normocephalic Eye Eye exam: Present PERRL and EOMI ENT ENT exam: Present mucous membranes moist Neck Neck exam: Present trachea midline Respiratory Respiratory exam: Present normal lung sounds bilaterally; Absent respiratory distress Cardiovascular Cardiovascular exam: Present regular rate Abdominal Exam Abdominal exam: Present soft Extremities Exam Extremities exam: Present full ROM Back Exam Back exam: Present tenderness and other (tender along spine with no cauda equina sx ) Neurological Exam Neurological exam: Present alert, oriented X3, CN II-XII intact and other (gcs=15); Absent motor sensory deficit Psychiatric Psychiatric exam: Present normal affect Skin Skin exam: Absent rash Medical Decision Making Medical Records Medical records reviewed: Yes I reviewed the p
[2022-10-02 23:39] VITALS: BP 128/75; PULSE 86; RESP 20; TEMP 36.8; O2SAT 98
== END 2022-10-03 00:12 | disposition home or self-care (01) ==
PROVIDERS: Emergency Provider Emergency Medicine; PCP Family Medicine
DX: S33.5XXA Sprain of ligaments of lumbar spine, initial encounter (principal); S16.1XXA Strain of muscle, fascia and tendon at neck level, initial encounter; W20.8XXA Other cause of strike by thrown, projected or falling object, initial encounter
CPT/HCPCS: 71045; 72050; 72072; 72100; 72170; 96372; 99285

== ENCOUNTER 2022-10-16 17:30 | Outpatient (RCR) | payer MEDICAID, SELFPAY ==
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
== END 2022-10-16 17:35 | disposition home or self-care (01) ==
LOC: PT 17:30
PROVIDERS: PCP Family Medicine; Visit Provider Nurse Practitioner Family
DX: M54.50 Low back pain, unspecified (principal); M25.551 Pain in right hip; M25.552 Pain in left hip
CPT/HCPCS: 97010; 97014; 97110; 97163; G0283

== ENCOUNTER → 2022-10-21 10:30 | Outpatient (POV) | payer MEDICAID, SELFPAY ==
[2022-10-21 11:39] VITALS: BP 106/77; PULSE 79; RESP 18; O2SAT 98; BMI 40.7
--- NOTE | 2022-10-21 13:09 | EXP.PAIN.SOA ---
[facility] Pain Management SOAP Note Subjective:: Patient is a pleasant 42 yo female who presents today for follow up. Patient is currently being treated for sacroiliitis, chronic pain related to low back, knee, hip and shoulders. She was being seen at a pain clinic in [facility] who was prescribing her Oxycodone. She says that she also did injection there. When she established with us, she was complaining of multiple areas of pain but her SI was the worst. We did a bilateral SI injections on her in August. However, she called our clinic saying that her pain was worse. I did start her on one-time dose of tramadol 50mg BID x5days. When she saw Shelby last time, she was complaining of worsening low back pain. We tried to get a lumbar MRI but this was denied by insurance. Shelby did refill her tramadol 50mg BID for one more month because we're still waiting for her MRI. When asked about her tramadol, patient says that she never picked it up. According to Damon, it was picked up on 09/17/22. She is also prescribed gabapentin 100mg 5x/day. She says that her PCP wants us to continue this. When I told the patient that we will do a drug screen today, she says that it might show that she has oxycodone in it. She says that she took some old prescriptions a few days ago. Damon [id number], MEQ 10. Review of Systems: General: No recent weight changes, no fever, no sleep disturbances Respiratory: No cough, no shortness of air, no recurring pulmonary infections Cardiovascular/peripheral vascular: No chest pain, no palpitations, no edema, no shortness of breath Gastrointestinal: No new onset incontinence, normal bowel movements reported Genitourinary: No new onset incontinence Musculoskeletal: LBP, knee pain, shoulder pain, hip pain Psychiatric: [Normal mood/affect] Neurological: [Denies weakness in extremities], [denies balance issues] Objective:: Physical Exam: General: Alert and oriented x3, no acute distress, pleasant and cooperative Lungs: Respirations even and unlabored, symmetrical chest expansion Eyes: PERRL Musculoskeletal: Flexion and extension of lumbar [spine] somewhat guarded secondary to pain, [antalgic gait noted] Neurological: Speech clear, no gross sensory deficit Assessment:: DDD Lumbar, chronic pain on her knee, hips and shoulders Plan:: Patient presents today for follow up. She is still complaining of pain in her all over her body especially her low back. She has tried conservative therapies such as oral meds, PT and home exercises > 6 weeks. She is not wanting to repeat PT because she is physically not able to. She says that she did this in the past but it aggravated her symptoms. We will obtain an updated lumbar MRI. We will dc the patient's tramadol and we will not be able to continue the patient's gabapentin. Patient might be a good candidate for SCS therapy. We will continue to manage the patient with non-opioid modalities. Patient has been instructed to contact the clinic with any concerns before the next appointment. Dr. García has reviewed this note and agrees with this plan of care. This note was dictated using voice recognition software and make contain errors or omissions. [facility] Disclaimer: The information contained in this section may have been updated after the patient was seen, as this information can be updated by other users. Medical History Cervical stenosis (uterine cervix) LGSIL on Pap smear of cervix Surgical History H/O total hysterectomy History of left salpingo-oophorectomy History of tubal ligation S/P endometrial ablation S/P hysterectomy Social History (Updated 08/13/22 @ 11:35 by Myrna Woo RN) Smoking Status: Current every day smoker tobacco type: cigarettes packs per day: 2 second hand exposure: No alcohol intake: never substance use type: denies use current occupational status: disabled
== END ==
PROVIDERS: PCP Family Medicine; Visit Provider Nurse Practitioner Family
DX: M51.36 Other intervertebral disc degeneration, lumbar region (principal); M25.569 Pain in unspecified knee; M25.551 Pain in right hip; M25.511 Pain in right shoulder; M25.512 Pain in left shoulder; M25.552 Pain in left hip; G89.29 Other chronic pain; F17.210 Nicotine dependence, cigarettes, uncomplicated
CPT/HCPCS: 99212; G0463

== ENCOUNTER → 2022-10-21 11:16 | Outpatient (CLI) | payer MEDICAID, SELFPAY ==
[2022-10-21 13:46] LABS: Amphetamine/Metha Screen,Urine Negative ng/ml (<1000)
[2022-10-21 13:48] LABS: Barbiturates Screen,Urine Negative ng/ml (<200)
[2022-10-21 13:49] LABS: Benzodiazepines Screen,Urine Negative ng/ml (<200)
[2022-10-21 13:50] LABS: Cannabinoid Screen,Urine Negative ng/ml (<50)
[2022-10-21 13:56] LABS: Cocaine Screen,Urine Negative ng/ml (<300)
[2022-10-21 13:57] LABS: Methadone Screen,Urine Negative ng/ml (<300); Opiate Screen,Urine Negative ng/ml (<300)
[2022-10-21 13:58] LABS: Phencyclidine Screen,Urine Negative ng/ml (<25)
== END ==
PROVIDERS: PCP Family Medicine; Visit Provider Nurse Practitioner Family
DX: Z79.891 Long term (current) use of opiate analgesic (principal)
CPT/HCPCS: 80305

== ENCOUNTER 2022-11-04 20:05 | Emergency (ER) | payer MEDICAID, SELFPAY ==
[2022-11-04 20:06] VITALS: BP 138/87; PULSE 85; RESP 16; TEMP 37; O2SAT 96; BMI 33.6
--- NOTE | 2022-11-04 21:14 | CT_ITS ---
PROCEDURE INFORMATION: Exam: CT Head Without Contrast Exam date and time: 11/04/2022 9:28 PM Age: 42 years old Clinical indication: Injury or trauma; Fall TECHNIQUE: Imaging protocol: Computed tomography of the head without contrast. Radiation optimization: All CT scans at this facility use at least one of these dose optimization techniques: automated exposure control; mA and/or kV adjustment per patient size (includes targeted exams where dose is matched to clinical indication); or iterative reconstruction. COMPARISON: CR XR CERVICAL SPINE 5V 10/02/2022 9:31 PM FINDINGS: Brain: There is no evidence of infarct, jerome-white matter differentiation is preserved. There is no hemorrhage or extra-axial collection. There is no mass. Cerebral ventricles: There is no hydrocephalus. Paranasal sinuses: Mild right maxillary sinus mucosal thickening. No air-fluid levels. Mastoid air cells: Visualized mastoid air cells are well aerated. Bones/joints: Unremarkable. No acute fracture. Soft tissues: Unremarkable. IMPRESSION: No intracranial injury or lesion.
--- NOTE | 2022-11-04 21:14 | XR_ITS ---
PROCEDURE INFORMATION: Exam: XR Pelvis Exam date and time: 11/04/2022 9:15 PM Age: 42 years old Clinical indication: Injury or trauma; Fall; Blunt trauma (contusions or hematomas); Does not apply; Pelvic region TECHNIQUE: Imaging protocol: Radiologic exam of the pelvis. Views: 1 or 2 view. COMPARISON: CR XR PELVIS 1-2V 10/02/2022 9:41 PM FINDINGS: Bones/joints: Unremarkable. No acute fracture. Soft tissues: Unremarkable. IMPRESSION: No acute findings.
--- NOTE | 2022-11-04 21:14 | CT_ITS ---
PROCEDURE INFORMATION: Exam: CT Thoracic Spine Without Contrast Exam date and time: 11/04/2022 9:31 PM Age: 42 years old Clinical indication: Injury or trauma; Fall TECHNIQUE: Imaging protocol: Computed tomography of the thoracic spine without contrast. Radiation optimization: All CT scans at this facility use at least one of these dose optimization techniques: automated exposure control; mA and/or kV adjustment per patient size (includes targeted exams where dose is matched to clinical indication); or iterative reconstruction. COMPARISON: CR XR THORACIC SPINE 3V 10/02/2022 9:31 PM FINDINGS: Bones/joints: No acute fracture. Normal alignment. No significant disc protrusion. No severe spinal canal stenosis. Soft tissues: Unremarkable. Lymph nodes: Small calcified granulomas and lymph nodes noted in the visualized portion of the chest. IMPRESSION: Normal CT appearance of the thoracic spine
--- NOTE | 2022-11-04 21:14 | XR_ITS ---
PROCEDURE INFORMATION: Exam: XR Chest Exam date and time: 11/04/2022 9:14 PM Age: 42 years old Clinical indication: Injury or trauma; Fall; Blunt trauma (contusions or hematomas) TECHNIQUE: Imaging protocol: Radiologic exam of the chest. Views: 2 views. COMPARISON: CR XR CHEST AP 10/02/2022 9:47 PM FINDINGS: Lungs: Unremarkable. No consolidation. Pleural spaces: Unremarkable. No pleural effusion. No pneumothorax. Heart/Mediastinum: Unremarkable. No cardiomegaly. Bones/joints: Unremarkable. IMPRESSION: No acute findings.
--- NOTE | 2022-11-04 21:14 | CT_ITS ---
PROCEDURE INFORMATION: Exam: CT Cervical Spine Without Contrast Exam date and time: 11/04/2022 9:28 PM Age: 42 years old Clinical indication: Injury or trauma; Fall TECHNIQUE: Imaging protocol: Computed tomography of the cervical spine without contrast. Radiation optimization: All CT scans at this facility use at least one of these dose optimization techniques: automated exposure control; mA and/or kV adjustment per patient size (includes targeted exams where dose is matched to clinical indication); or iterative reconstruction. COMPARISON: CR XR CERVICAL SPINE 5V 10/02/2022 9:31 PM FINDINGS: Bones/joints: There is no fracture of cervical vertebral bodies. The vertebra maintain their height. There is slight straightening of cervical curvature. Alignment is otherwise normal. Series 4, image 25, curvilinear calcification posterior to C1 could represent ligament calcification or dystrophic calcification. It does not appear to represent an acute fracture as the adjacent cortex of C1 is intact with no evidence of a donor site. Posterior elements demonstrate no evidence of fracture. There is no central or foraminal stenosis in the cervical spine. No significant disc disease. Lungs: Lung apices are normal. Soft tissues: Unremarkable. IMPRESSION: No acute fracture of the cervical spine
--- NOTE | 2022-11-04 21:14 | CT_ITS ---
PROCEDURE INFORMATION: Exam: CT Lumbar Spine Without Contrast Exam date and time: 11/04/2022 9:33 PM Age: 42 years old Clinical indication: Injury or trauma; Fall TECHNIQUE: Imaging protocol: Computed tomography of the lumbar spine without contrast. Radiation optimization: All CT scans at this facility use at least one of these dose optimization techniques: automated exposure control; mA and/or kV adjustment per patient size (includes targeted exams where dose is matched to clinical indication); or iterative reconstruction. COMPARISON: CR XR LUMBAR SPINE 2-3V 10/02/2022 9:43 PM FINDINGS: Bones/joints: No acute fracture. Normal alignment. No significant disc protrusion. No severe spinal canal or neuroforaminal stenosis. Soft tissues: Unremarkable. IMPRESSION: No acute findings.
--- NOTE | 2022-11-04 21:22 | PC.NURSE ---
gone to ct
--- NOTE | 2022-11-04 22:05 | HMH.EDGENADL ---
Discharge Plan Disposition Patient Disposition: Home, Self-Care Condition: Good Prescriptions Prescriptions: New naproxen [Naprosyn] 500 mg tablet 500 mg PO Q8H PRN (Reason: pain) Qty: 20 0RF methocarbamol 750 mg tablet 750 mg PO Q8H PRN (Reason: pain) Qty: 20 0RF No Action gabapentin 100 mg capsule 200 mg PO TID Rx Instructions: 200mg TID, Then 300mg at bedtime albuterol sulfate 200 PUFF HFA aerosol inhaler 2 puffs IH Q6HP PRN (Reason: Shortness Of Breath) prednisone [prednisone] 20 mg tablet 20 mg PO BID Referrals Follow up/Referrals: Tiffany Hoskins [Primary Care Provider] - See instructions Activity Restrictions/Add. Instructions Additional Instructions/Restrictions: You were evaluated in the emergency department today and diagnosed with a musculoskeletal strain of your neck. 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 You may also take Tylenol in addition to these. Follow-up with your primary care provider over the next 48 hours. Return to the emergency department for any new or worsening symptoms. Clinical Impressions Clinical Impression: Acute cervical myofascial strain Qualifiers: Encounter type: initial encounter Qualified Code(s): S16.1XXA - Strain of muscle, fascia and tendon at neck level, initial encounter Instructions Patient Instructions: DI for Cervical Muscle Strain Discharge ED Provider: Shelby Vazquez General Adult HPI General Chief complaint: Fall Stated complaint: ao fall 11/03, hit head, neck and back pain Time Seen by Provider: 11/04/22 21:42 Mode of Arrival: Ambulatory Source of Information: Patient Limitations: No Limitations Description of Symptoms (Recalled from ER Triage Doc. by RN): pt states fell yesterday @ 5pm that feet fell out from [place] and landed on back. pt c/o pain to neck radiating down spine, tingling to spine. History of Present Illness HPI narrative: This patient is a 42-year-old female with a history of chronic back pain on gabapentin presenting to the emergency department for evaluation of acute neck and upper back pain after a ground-level fall that happened yesterday. She states that around 5 PM, her feet flew out from under her and she landed on her back. She complains of right-sided neck pain radiating down her entire back. She denies any numbness, weakness, or other concerns. She states that it feels like she has whiplash. She has not taken medications at home for improvement. Movement seems to make it worse. Nothing makes it better. She was well prior to the fall and has no other acute concerns. She did not lose consciousness, and she takes no blood thinners. Related Data Home Medications Medication Instructions Recorded Confirmed gabapentin 100 mg capsule 200 mg PO TID Pain 03/22/22 10/21/22 albuterol sulfate 90 mcg/actuation 2 puffs inhalation Q6HP PRN 04/24/22 10/21/22 aerosol inhaler Shortness Of Breath prednisone 20 mg tablet 20 mg PO BID Pain 10/21/22 10/21/22 Previous Rx's Medication Instructions Recorded methocarbamol 750 mg tablet 750 mg PO Q8H PRN pain #20 tabs 11/04/22 naproxen 500 mg tablet (Naprosyn) 500 mg PO Q8H PRN pain #20 tabs 11/04/22 Allergies Allergy/AdvReac Type Severity Reaction Status Date / Time No Known Allergies Allergy Verified 07/23/22 11:55 [facility] Disclaimer: The information contained in this section may have been updated after the patient was seen, as this information can be updated by other users. Medical History Cervical stenosis (uterine cervix) LGSIL on Pap smear of cervix Surgical History H/O total hysterectomy History of left salpingo-oophorectomy History of tubal ligation S/P endometrial ablation S/P hysterectomy Social History Smoking Status: Unknown if ever smoked
[2022-11-04 22:51] VITALS: BP 127/78; PULSE 81; RESP 16; TEMP 37; O2SAT 96
== END 2022-11-04 23:00 | disposition home or self-care (01) ==
PROVIDERS: Emergency Provider Emergency Medicine; PCP Family Medicine
DX: R51.9 Headache, unspecified; M54.2 Cervicalgia; M54.9 Dorsalgia, unspecified; W19.XXXA Unspecified fall, initial encounter; S16.1XXA Strain of muscle, fascia and tendon at neck level, initial encounter; G89.29 Other chronic pain; Z90.710 Acquired absence of both cervix and uterus
CPT/HCPCS: 70450; 71046; 72125; 72128; 72131; 72170; 96372; 99285

== ENCOUNTER → 2022-11-07 10:33 | Outpatient (CLI) | payer MEDICAID, SELFPAY ==
--- NOTE | 2022-11-07 10:35 | MR_ITS ---
FINAL REPORT TECHNIQUE: Multiplanar MR without contrast CLINICAL HISTORY: Chronic low back pain times years without known injury COMPARISON: None FINDINGS: Sagittal images show normal vertebral height. Alignment is normal. Marrow signal pattern is unremarkable. L1-2: Unremarkable L2-3: Unremarkable L3-4: Unremarkable L4-5: Unremarkable L5-S1: Unremarkable IMPRESSION: Unremarkable exam Reviewed, Interpreted and Dictated by Erik Bridges MD Transcribed by Julianna Castillo Authenticated and [facility]
== END ==
PROVIDERS: PCP Family Medicine; Visit Provider Nurse Practitioner Family
DX: M54.50 Low back pain, unspecified (principal)
CPT/HCPCS: 72148; 76376

== ENCOUNTER → 2022-11-18 09:20 | Outpatient (POV) | payer MEDICAID, SELFPAY ==
[2022-11-18 09:30] VITALS: BP 119/82; PULSE 88; RESP 19; O2SAT 97; BMI 33.6
--- NOTE | 2022-11-18 10:04 | EXP.PAIN.SOA ---
[facility] Pain Management SOAP Note Subjective:: Patient is a pleasant 42-year-old female who presents today for MRI follow-up. We are currently treating the patient for sacroiliitis, chronic pain low back, bilateral knee pain, hip and shoulder pain. Patient denies any new trauma or injury. Patient denies any change to location or type of pain she experiences. Patient does rate her pain an 8 out of 10 today. Patient states this is a aching, throbbing sensation with occasional shooting sensations with increased activity. Patient states that her pain does alternate and she is currently prescribed gabapentin 100 mg 5 times a day from her primary care doctor. Patient denies any side effects from this medication. Patient was recently given tramadol 50 mg twice a day from our office. Patient states this has helped some. Patient denies any cardiac or kidney issues. Her Damon is [phone]. Its been reviewed and appropriate. Review of Systems: General: No recent weight changes, no fever, no sleep disturbances Respiratory: No cough, no shortness of air, no recurring pulmonary infections Cardiovascular/peripheral vascular: No chest pain, no palpitations, no edema, no shortness of breath Gastrointestinal: No new onset incontinence, normal bowel movements reported Genitourinary: No new onset incontinence Musculoskeletal: Low back pain, knee pain Psychiatric: [Normal mood/affect] Neurological: [Denies weakness in extremities], [denies balance issues] Objective:: Physical Exam: General: Alert and oriented x3, no acute distress, pleasant and cooperative Lungs: Respirations even and unlabored, symmetrical chest expansion Eyes: PERRL Musculoskeletal: Flexion and extension of lumbar [spine] somewhat guarded secondary to pain, [antalgic gait noted] Neurological: Speech clear, no gross sensory deficit ORT score updated with moderate risk History of bipolar and depression Family history of alcohol use Age 42 Assessment:: Sacroiliitis, chronic low back pain, bilateral knee pain, hip pain and shoulder pain Plan:: Patient continues to experience significant pain at multiple joints throughout her body and her low back. Patient did have limited range of motion of her lumbar spine. Patient's MRI was unremarkable with all her vertebral heights normal, and marrow signal unremarkable. Previously we had discussed sending her to a neurosurgeon however with her current findings we will wait at this time. I will order the patient a compounding cream and I will send in a diclofenac prescription 75 mg twice daily with a 2-week supply of this medication. I have counseled the patient to take this medication with food to minimize GI upset and to stop taking all other NSAIDs such as Aleve and ibuprofen while taking this medication. Patient will return to clinic in 1 month for reevaluation of symptoms, medication refill if indicated and follow-up. Patient has been instructed to contact the clinic with any concerns before the next appointment. Dr. García has reviewed this note and agrees with this plan of care. This note was dictated using voice recognition software and make contain errors or omissions. [facility] Disclaimer: The information contained in this section may have been updated after the patient was seen, as this information can be updated by other users. Medical History Cervical stenosis (uterine cervix) LGSIL on Pap smear of cervix Surgical History H/O total hysterectomy History of left salpingo-oophorectomy History of tubal ligation S/P endometrial ablation S/P hysterectomy Social History Smoking Status: Unknown if ever smoked second hand exposure: No alcohol intake: never substance use type: denies use current occupational status: disabled Travel in the last 8 weeks: None household members:
== END | disposition home or self-care (01) ==
PROVIDERS: PCP Family Medicine; Visit Provider Nurse Practitioner Family
DX: M46.1 Sacroiliitis, not elsewhere classified (principal); M54.50 Low back pain, unspecified; G89.29 Other chronic pain; M25.561 Pain in right knee; M25.562 Pain in left knee; M25.559 Pain in unspecified hip; M25.519 Pain in unspecified shoulder
CPT/HCPCS: 99212; G0463

== ENCOUNTER → 2022-12-20 08:57 | Outpatient (POV) | payer MEDICAID, SELFPAY ==
[2022-12-20 09:21] VITALS: BP 150/96; PULSE 82; RESP 18; O2SAT 98; BMI 34.2
--- NOTE | 2022-12-20 09:38 | A.OFFVIS_ITS ---
[facility] Pain Management SOAP Note Subjective:: This patient is a pleasant 42-year-old female comes our clinic today for follow- up visit after receiving tramadol for 2 weeks. Compound pain cream and diclofenac from her previous visit on 11/18/2022. Patient reports no relief from either of these modalities. Patient complains of low back pain that she describes as constant, dull, sharp and stabbing. She complains of right hip and leg radicular symptoms at times. However, her lumbar spine MRI is completely normal. Patient states she has bottles full of muscle relaxers that do not help. Patient also reports she was involved in a pain clinic in no other [place] in the recent past and was being given narcotics. However, this pain c linic was shut down. Objective:: Patient is awake alert [place] x3. In no acute distress. Flexion-extension lumbar spine somewhat guarded secondary to pain. Deep tendon reflexes upper lower extremities normal. Motor strength upper and lower extremities normal. There is no gross sensory deficit. Gait is normal. Assessment:: Chronic lumbar back pain. Plan:: I discussed in detail with the patient regarding treatment options. Essentially, we have run out of options for her. She has no pathology in the lumbar spine. Medications are not helping. I told the patient there were any other options for her in our clinic. Not much we can do to help her at this point. She understands. [facility] Disclaimer: The information contained in this section may have been updated after the patient was seen, as this information can be updated by other users. Medical History Cervical stenosis (uterine cervix) LGSIL on Pap smear of cervix Surgical History H/O total hysterectomy History of left salpingo-oophorectomy History of tubal ligation S/P endometrial ablation S/P hysterectomy Social History Smoking Status: Unknown if ever smoked second hand exposure: No alcohol intake: never substance use type: denies use current occupational status: disabled Travel in the last 8 weeks: None household members: children housing: house current occupational exposures/hazards: No caffeine: Yes
== END ==
PROVIDERS: PCP Family Medicine; Visit Provider Nurse Anesthetist, Certified Registered
DX: M54.50 Low back pain, unspecified (principal); G89.29 Other chronic pain
CPT/HCPCS: 99212; G0463